=== PATIENT | female | born 1985 | race African-American/Black ===

== ENCOUNTER 2018-05-01 11:53 | Inpatient (IN) | payer OTHER ==
[~2018-05-01] VITALS: Ht 162.6 cm; Wt 49.0 kg
[2018-05-01] MEDS ORDERED: GABA-845 PO (12:14)
[2018-05-01] MEDS ORDERED: ZANA4CAP PO (12:14)
[2018-05-01 12:19] LABS: VENOUS BASE EXCESS -2.3 (-2.0-2.0); VENOUS HCO3 23.5 MEQ/L (23.0-27.0); VENOUS O2 SATURATION 91.7 % (60.0-80.0); VENOUS PARTIAL PRESSURE CO2 44.2 mmHg (38.0-50.0); VENOUS PARTIAL PRESSURE O2 65.8 mmHg (30.0-50.0); VENOUS PH 7.343 UNITS (7.330-7.430); VENOUS STANDARD HCO3 22.4 MEQ/L; VENOUS TOTAL CO2 24.8 MEQ/L (24.0-28.0)
[2018-05-01 12:24] LABS: BASO % 0.5 % (0.0-1.0); EOS % 0.5 % (0.0-3.0); HEMOGLOBIN 11.8 g/dl (12.0-15.5); LYMPH # 1.6 10^3/uL (1.5-4.5); LYMPH % 26.7 % (24.0-44.0); MEAN CORPUSCULAR HEMOGLOBIN 27.4 pg (27.0-33.0); MEAN CORPUSCULAR HGB CONC 32.8 g/dl (32.0-36.5); MEAN CORPUSCULAR VOLUME 83.5 fl (80.0-96.0); MONO # 0.3 10^3/uL (0.0-0.8); NEUTROPHILS # 3.9 10^3/uL (1.8-7.7); NEUTROPHILS % 67.1 % (36.0-66.0); PLATELET COUNT, AUTOMATED 117 10^3/uL (150-450); RED BLOOD COUNT 4.31 10^6/uL (4.00-5.40); WHITE BLOOD COUNT 5.8 10^3/uL (4.0-10.0)
[2018-05-01] MEDS ORDERED: NS 1,000 ML IV ONE (12:45)
[2018-05-01 12:53] LABS: ACETAMINOPHEN LEVEL < 2.0 UG/ML (10.0-30.0); ALBUMIN 3.5 GM/DL (3.2-5.2); ALT/SGPT 19 U/L (12-78); BILIRUBIN,DIRECT 0.3 MG/DL (0.0-0.2); BILIRUBIN,TOTAL 1.1 MG/DL (0.2-1.0); BLOOD UREA NITROGEN 9 MG/DL (7-18); CALCIUM LEVEL 8.3 MG/DL (8.5-10.1); CARBON DIOXIDE LEVEL 21 MEQ/L (21-32); CHLORIDE LEVEL 111 MEQ/L (98-107); CPK CREATINE PHOSPHOKINASE 126 U/L (26-192); CREATININE FOR GFR 0.72 MG/DL (0.55-1.30); ETHYL ALCOHOL (ETHANOL) < 0.003 % (0.000-0.010); GLOMERULAR FILTRATION RATE > 60.0 (>60); GLUCOSE, FASTING 92 MG/DL (70-100); POTASSIUM SERUM 4.1 MEQ/L (3.5-5.1); SALICYLATE LEVEL < 1.7 MG/DL (5.0-30.0); SODIUM LEVEL 140 MEQ/L (136-145); THYROID STIMULATING HORMONE 0.983 uIU/ML (0.358-3.740); TOTAL PROTEIN 6.8 GM/DL (6.4-8.2)
[2018-05-01 12:58] LABS: HCG, SERUM QUALITATIVE NEGATIVE (NEGATIVE)
--- NOTE | 2018-05-01 13:39 | ECGEPIP ---
Stationary ECG Study [facility] - ED Test Date: 2018-05-01 Pat Name: ALYSSA FALCON Department: Room: - Gender: F Senior Sql Server Developer: TC : 1985 Requested By: Lilly Navarro Order Number: [id number] Reading MD: Erick Ann Measurements Intervals [place] Rate: 69 P: 55 KS: 164 QRS: 83 QRSD: 70 T: 64 QT: 400 QTc: 431 Interpretive Statements SINUS RHYTHM NO PRIORS FOR COMPARISON Electronically Signed On 05-01-2018 13:39:07 EST by Erick Ann
[2018-05-01 13:54] LABS: AMPHETAMINES LEVEL URINE NEGATIVE (NEGATIVE); BARBITURATES URINE NEGATIVE (NEGATIVE); BENZODIAZEPINES URINE NEGATIVE (NEGATIVE); CANNABINOIDS URINE NEGATIVE (NEGATIVE); COCAINE METABOLITE URINE NEGATIVE (NEGATIVE); METHADONE URINE NEGATIVE (NEGATIVE); OPIATES URINE NEGATIVE (NEGATIVE); PHENCYCLIDINE URINE NEGATIVE (NEGATIVE)
[2018-05-01] MEDS ORDERED: MELO15TA28 PO (17:41)
[2018-05-01] MEDS ORDERED: MONI2KIT PV (17:41)
[2018-05-01] MEDS ORDERED: MOM 30ML SUSPENSION UDC PO PRN (19:45)
[2018-05-01] MEDS ORDERED: MAALOX 30 ML SUSP *UDC PO PRN (19:45)
[2018-05-02 00:06] VITALS: BP 104/64
[2018-05-02] MEDS: ACETAMINOPHEN TAB 650MG DOSE (2X325MG) PO PRN (00:50)
[2018-05-02 07:18] VITALS: BP 101/59
--- NOTE | 2018-05-02 09:58 | HPEPDOC ---
[facility] Medical History & Physical Date of Admission May 01, 2018 History and Physical PCP: [facility] ATTENDING: Dr. Roula Plascecnia HPI: 32yoF brought to the emergency department following ingestion of 6 gabapentin, 6 tizanidine, 6 meloxicam at 0900 on 05/01/18. The patient was treated with IV fluids, poison control was consulted, the patient was medically stabilized and admitted to [facility] for unspecified depressive disorder, being medically examined today. Denies any fevers, chills, weakness, fatigue, DIAZ, CP, SOB, cough, palpitations, abdominal pain, N/V/D or changes in bowel or bladder habits. PMHx: Anxiety Depression History of SI/SA Chronic back pain. The patient reports she follows with [facility] for chronic back pain. She was prescribed gabapentin and tizanidine as per orthopedics for pain. She was prescribed meloxicam as per PCP for back pain. OAB PSHX: 1 SOCHX: Resides in: [facility]. Patient states she is from [facility]. Marital Status: Kids: 2 Employment: Active duty Tobacco use: Denies ETOH: One to 2 drinks every 3 months Illicit Drugs: Denies IV Drug Use: Denies Tattoos done unprofessionally: Denies FAMHX: Mother: Alive, well Father: Alive, well Siblings: Alive, well Children: Alive, well Unexpected deaths due to medical reasons: None. ROS: As noted in HPI, otherwise 11pt ROS of systems reviewed and remarkable only for LMP 04/08/18. She reports taking Monistat 3 [id number] for the past 2 months for some mild itching and occasional whitish vaginal discharge. She reports no urinary complaints, dysuria, frequency, urgency, or hematuria. She denies vaginal discharge currently. She denies any vaginal lesions currently. PE: GEN: 32 yo F, appears stated age. Well-nourished, well developed. No acute distress. Alert and oriented x 3. Affect is flat, provides 1-2 word answers. HEENT: Normocephalic, atraumatic. Pupils are equal, round, and reactive to light. Extraocular movements are intact. No nystagmus appreciated. Sclera are nonicteric. Conjunctiva without injection. Nose midline. Nasal turbinates without bogginess. EACs both patent BL. TMs both visualized and galvan with good cone of light, no bulging or erythema. No facial asymmetry. Moist mucous membranes. Dentition fair. Pharynx pink and moist, no cobblestoning. Neck supple, trachea midline. No lymphadenopathy or thyromegaly appreciated. CHEST: Regular rate and rhythm, +S1, +S2 LUNGS: Clear to auscultation bilaterally. No wheezes, rales, or rhonchi. Br eathing appears symmetric and easy. Patient is speaking in full sentences. No accessory muscle use. ABD: Round, soft, non-tender, non-distended. +Bowel sounds throughout. No rebound or guarding. No costovertebral angle tenderness. EXT: Pulses 2+ bilaterally dorsalis pedis and radial. No lower extremity edema appreciated. SKIN: [place], dry, warm. Capillary refill <2sec. No rashes. NEURO: Alert and oriented x 3. Cranial nerves III-XII are intact. No focal deficits appreciated. EKG: SINUS RHYTHM NO PRIORS FOR COMPARISON Electronically Signed On 05-01-2018 13:39:07 EST by Erick Ann A&P: 32yoF brought to the emergency department following ingestion of 6 gabapentin, 6 tizanidine, 6 meloxicam at 0900 on 05/01/18. The patient was treated with IV fluids, poison control was consulted, the patie nt was medically stabilized and admitted to [facility] for unspecified depressive disorder 1. Psych. Plan per Psychiatry. EKG on file. 2. Chronic back pain. Continue Tylenol 650 mg every 6 hours as needed. Follows as outpatient with [facility]. Consider pain management consultation if needed. 3. Vaginitis. The pt reports that she was self treating for intermittent mild itching. She is currently reporting no vaginal discharge, bleeding, skin lesions. She is denying any urinary complaints or abdominal pain. Request UA with reflex culture. The patient states she had been using Monistat [id number] for the past 2 months. Monistat is on hold at this time. The patient is declining STI screening at this time. 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 4. OAB. Request UA with reflex culture. 5. Follow up with PCP on discharge. 6. Staff member eMsha K[facility] present throughout exam. Vital Signs Vital Signs Date Time Temp Pulse Resp B/P (MAP) Pulse Ox O2 Delivery O2 Flow Rate FiO2 05/02/18 09:25 Room Air 05/02/18 07:18 98.9 72 14 101/59 (73) 05/02/18 00:06 99 Laboratory Data Labs 24H Laboratory Tests 2 05/01/18 12:10: Immature Granulocyte % (Auto) 0.2, White Blood Count 5.8, Red Blood Count 4.31, Hemoglobin 11.8L, Hematocrit 36.0, Mean Corpuscular Volume 83.5, Mean Corpuscular Hemoglobin 27.4, Mean Corpuscular Hemoglobin Concent 32.8, Red Cell Distribution Width 14.5, Platelet Count 117L, Neutrophils (%) (Auto) 67.1H, Lymphocytes (%) (Auto) 26.7, Monocytes (%) (Auto) 5.0, Eosinophils (%) (Auto) 0.5, Basophils (%) (Auto) 0.5, Neutrophils # (Auto) 3.9, Lymphocytes # (Auto) 1.6, Monocytes # (Auto) 0.3, Eosinophils # (Auto) 0.0, Basophils # (Auto) 0.0, Nucleated Red Blood Cells % (auto) 0.0, Blood Gas Bicarbonate Standard 22.4, Venous Blood pH 7.343, Venous Blood Partial Pressure CO2 44.2, Venous Blood Partial Pressure O2 65.8H, Venous Blood Total Carbon Dioxide 24.8, Venous Blood HCO3 23.5, Venous Blood Oxygen Saturation 91.7H, Venous Blood Base Excess -2.3L, Anion Gap 8, Glomerular Filtration Rate > 60.0, Calcium Level 8.3L, Aspartate Amino Transf (AST/SGOT) 19, Alanine Aminotransferase (ALT/SGPT) 19, Alkaline Phosphatase 43L, Total Bilirubin 1.1H, Direct Bilirubin 0.3H, Total Creatine Kinase 126, Total Protein 6.8, Albumin 3.5, Albumin/Globulin Ratio 1.06, Thyroid Stimulating Hormone (TSH) 0.983, Human Chorionic Gonadotropin, Qual NEGATIVE, Salicylates Level < 1.7L, Urine Amphetamines Screen NEGATIVE, Urine Benzodiazepines Screen NEGATIVE, Urine Opiates Screen NEGATIVE, Urine Methadone Screen NEGATIVE, Acetaminophen Level < 2.0L, Urine Barbiturates Screen NEGATIVE, Urine Phencyclidine Screen NEGATIVE, Urine Cocaine Metabolite Screen NEGATIVE, Urine Cannabinoids Screen NEGATIVE, Ethyl Alcohol Level < 0.003 05/01/18 12:21: Bedside Glucose (Misc Panel) 62L 05/01/18 14:06: Bedside Glucose (Misc Panel) 70 CBC/BMP Laboratory Tests 05/01/18 12:10 Red Blood Count 4.31, Mean Corpuscular Volume 83.5, Mean Corpuscular Hemoglobin 27.4, Mean Corpuscular Hemoglobin Concent 32.8, Red Cell Distribution Width 14.5, Neutrophils (%) (Auto) 67.1 H, Lymphocytes (%) (Auto) 26.7, Monocytes (%) (Auto) 5.0, Eosinophils (%) (Auto) 0.5, Basophils (%) (Auto) 0.5, Neutrophils # (Auto) 3.9, Lymphocytes # (Auto) 1.6, Monocytes # (Auto) 0.3, Eosinophils # (Auto) 0.0, Basophils # (Auto) 0.0 Home Medications Scheduled (Monistat 3 Combination Pa) 1 Kit Kit, 1 KIT PV QPM Gabapentin (Gabapentin) 400 Mg Cap, 400 MG PO TID Meloxicam (Meloxicam) 15 Mg Tab, 15 MG PO DAILY Tizanidine Hydrochloride (Zanaflex) 4 Mg Cap, 4 MG PO TID Allergies Coded Allergies: No Known Allergies (Unverified , 05/01/18) Sugey Ramachandran May 02, 2018 09:58
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
[2018-05-02] MEDS: MELOXICAM (MOBIC) 7.5 MG TAB PO SCH (12:33)
[2018-05-02] MEDS: hydrOXYzine 25 MG TAB PO PRN (12:34)
[2018-05-02] MEDS: tiZANidine 4 MG TAB PO SCH ×2 (15:59→21:07)
[2018-05-02] MEDS: GABAPENTIN 400 MG CAP PO SCH ×2 (15:59→21:06)
--- NOTE | 2018-05-02 16:59 | REP ---
CT Head without contrast HISTORY: Psychosis COMPARISON: None There is no intraparenchymal hemorrhage, acute infarct, mass or midline shift. The ventricular system is normal in appearance. There is no extra cerebral collection. There is no fracture. The visualized sinuses are clear. IMPRESSION: There is no intracranial lesion. Electronically Signed by Giuseppe Mandujano MD 05/02/2018 04:50 P
[2018-05-02 18:00] VITALS: BP 95/61
[2018-05-02] MEDS: SERTRALINE HCL 50 MG TAB PO SCH (21:06)
[2018-05-02] MEDS: PALIPERIDONE 3 MG ER TAB (INVEGA) PO SCH (21:07)
[2018-05-03 06:12] VITALS: BP 102/59
[2018-05-03] MEDS ORDERED: tiZANidine 4 MG TAB PO SCH (09:00)
[2018-05-03] MEDS: GABAPENTIN 400 MG CAP PO SCH ×3 (09:10→21:02)
[2018-05-03] MEDS: tiZANidine 4 MG TAB PO SCH (09:10)
[2018-05-03] MEDS: MELOXICAM (MOBIC) 7.5 MG TAB PO SCH (09:10)
[2018-05-03] MEDS: hydrOXYzine 25 MG TAB PO PRN ×2 (09:10→16:55)
[2018-05-03 18:00] VITALS: BP 116/64
[2018-05-03] MEDS: PALIPERIDONE 3 MG ER TAB (INVEGA) PO SCH (21:02)
[2018-05-03] MEDS: SERTRALINE HCL 50 MG TAB PO SCH (21:02)
[2018-05-03] MEDS: PRAZOSIN 1 MG CAP PO SCH (21:03)
[2018-05-04 06:00] VITALS: BP 113/59
[2018-05-04] MEDS: MELOXICAM (MOBIC) 7.5 MG TAB PO SCH (08:25)
[2018-05-04] MEDS: tiZANidine 4 MG TAB PO SCH ×2 (08:25→21:05)
[2018-05-04] MEDS: GABAPENTIN 400 MG CAP PO SCH ×3 (08:25→21:05)
[2018-05-04] MEDS: hydrOXYzine 25 MG TAB PO PRN ×2 (08:26→16:54)
--- NOTE | 2018-05-04 17:29 | MHIPN ---
DATE: 05/04/2018 CHIEF COMPLAINT: Appears depressed. SUBJECTIVE: Seen for followup, in the presence of staff. She says feels depressed, anxious as well, sleep is fair. Appetite has been down generally, feels a bit tired. Says has a tendency to look at objects for 2-3 minutes, and always look for a bright side to them, literally, before she moves on to a different object, says has done that for a few years, and suggests feels anxious if she is not able to find a literal "bright side." Says when she is able to, feels less anxious, and then the process repeats itself. Says the tendencies above also tend to interfere with her work at times, or at times with her son. Denies any auditory hallucinations. Denies any visual hallucinations as such. Says was disappointed her mother did not visit her, or be with her, when the patient's son was born, this was when she was in [place]. MENTAL STATUS EXAMINATION: Neat, cooperative, though possibly a bit guarded, coherent, speaks softly, no agitation. Mood is depressed. Affect is restricted in range, congruent with mood, shows little in terms of reactivity. She denies any suicidal thoughts or intents. No homicidal ideas or intents. Does not appear internally preoccupied. No delusional ideations elicited. Cognition grossly intact. Judgment and insight are poor. ASSESSMENT: Posttraumatic stress disorder. Major depressive disorder, possibly recurrent, severe. Remains depressed, has trauma related symptoms. It is possible she has compulsions, when she looks at objects, rather than illusions, or visual hallucinations. Tends to feel less anxious when she is able to look at the "brighter side," only for the anxiety to return. PLAN: Continue Zoloft 50 mg daily, will look at titrating it upwards, to help address her mood, trauma related symptoms, as well as the compulsions. Unclear of the indications for paliperidone, at this dose.Given the lowest recommended dose for the paliperidone, will continue with 3 mg at night, but I would suggest re-looking at its use. I would encourage her to participate in activities in the unit. Her marriage remains a considerable source of difficulty for the patient, and will need to address that. Vital signs: Blood pressure 113/59, pulse 87, temperature 99. edited: 05/06/2018 [id number] fz MTDD
[2018-05-04 18:00] VITALS: BP 115/69
[2018-05-04] MEDS: SERTRALINE HCL 50 MG TAB PO SCH (21:05)
[2018-05-04] MEDS: PALIPERIDONE 3 MG ER TAB (INVEGA) PO SCH (21:05)
[2018-05-04] MEDS: PRAZOSIN 1 MG CAP PO SCH (21:05)
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
[2018-05-05 06:00] VITALS: BP 100/54
[2018-05-05] MEDS: MELOXICAM (MOBIC) 7.5 MG TAB PO SCH (08:40)
[2018-05-05] MEDS: tiZANidine 4 MG TAB PO SCH ×2 (08:40→20:18)
[2018-05-05] MEDS: GABAPENTIN 400 MG CAP PO SCH ×3 (08:40→20:18)
[2018-05-05] MEDS: hydrOXYzine 25 MG TAB PO PRN ×2 (08:41→14:29)
[2018-05-05] MEDS ORDERED: SERTRALINE HCL 25 MG TABLET PO ONE (13:00)
[2018-05-05 18:00] VITALS: BP 108/68
[2018-05-05] MEDS: PALIPERIDONE 3 MG ER TAB (INVEGA) PO SCH (20:18)
[2018-05-05] MEDS: PRAZOSIN 1 MG CAP PO SCH (20:18)
[2018-05-05] MEDS: traZODone 50 MG TAB PO PRN (20:26)
[2018-05-05] MEDS ORDERED: SERTRALINE HCL 25 MG TABLET PO SCH (21:00)
[2018-05-06 06:15] VITALS: BP 95/54
[2018-05-06] MEDS: tiZANidine 4 MG TAB PO SCH ×2 (08:31→20:16)
[2018-05-06] MEDS: MELOXICAM (MOBIC) 7.5 MG TAB PO SCH (08:31)
[2018-05-06] MEDS: GABAPENTIN 400 MG CAP PO SCH ×3 (08:31→20:15)
[2018-05-06] MEDS: hydrOXYzine 25 MG TAB PO PRN ×3 (08:32→20:16)
[2018-05-06] MEDS ORDERED: SERTRALINE HCL 25 MG TABLET PO SCH (09:00)
--- NOTE | 2018-05-06 10:44 | MHIPN ---
DATE: 05/05/2018 CHIEF COMPLAINT: Feels depressed. SUBJECTIVE: Seen for follow-up in the presence of staff, says feels depressed, anxious as well. Says saw her , she has informed him that she would want a divorce, and in fact, wants him out of the house when she leaves the hospital. Says they have spoken about divorce in the past as well, and she feels she cannot continue in the marriage. MENTAL STATUS EXAMINATION: Sitting up in bed. She is neat. She is cooperative, coherent. She speaks softly. Affect is restricted. Appears depressed, mildly anxious. Has suicidal thoughts. No firm plans. Currently no evidence of psychosis. Does not appear internally preoccupied. Cognition is grossly intact. Judgment and insight remain questionable. ASSESSMENT: Posttraumatic stress disorder (PTSD). Major depressive disorder, possibly recurrent, severe. PLAN: Will look at increasing the Zoloft to 75 mg daily to help with mood, trauma related symptoms, as well as the compulsions, which are mostly visual. We will continue encouraging her in participating in activities in the unit. She will be seeing the treatment team as well as the psychiatrist tomorrow, and further recommendations will be made. VITAL SIGNS: Blood pressure 100/54, temperature 99.3, pulse 75.
--- NOTE | 2018-05-06 13:54 | MHIPNPDOC ---
[facility] Progress Note Progress Note DATE OF SERVICE: 05/06/18 HISTORY: Chief Complaint "I overdosed". History of Present Illness HISTORY OF THE PRESENT ILLNESS: As per ED report: "Patient is a 32 -year-old , female, who, according to the ED report: "Patient is a [place] of [facility], residing here x 10 years. 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 She states that during the 3 months in which she was from them, she experienced severe depression & SI. She describes having a very difficult marriage now, noting that she is very unhappy with her home life. She suggested that this unhappiness at home has carried over to everyday life, whether at home or not. She states that she left for work this morning & sat in the parking lot, where she took the overdose before contacting her NCO. She continues to report feeling very depressed & is non-commital regarding her current intentions (when asked about continued SI)." VITAL SIGNS: See below. NEW TEST RESULTS: See below CURRENT MEDICATIONS: See below. MENTAL STATUS EXAMINATION: General Appearance: well groomed, appears stated age, hospital scubs/clothing Build: average Demeanor: cooperative, calm, withdrawn Eye Contact: average Activity: average Behavior: cooperative, anhedonia, withdrawn Speech: clear, spontaneous, slow, low in volume Mood: anxious, sad, angry Affect: constricted, flat, other (depressed) Thought Process: logical/linear Thought Content (Delusions): paranoia Thought Content (Other): none reported, ideas of reference Thought Content (Aggressive): none reported Perception (Hallucinations): visual (She sees spots on the ceiling) Cognition (Impairment of): attention/concentration (she becomes easily distracted when she sees spots on the ceiling) Oriented: Awake, Alert, Oriented times three Insight: poor Judgment: Poor Psychosis: Denies Diagnoses 1. Major Depressive disorder with psychosis 2. PTSD ASSESSMENT: Patient says she feels sad, angry and anxious, her affect is constricted. She continues to report visual hallucinations consisting on dots on the ceiling. I recommend her to see an eye doctor to r/o something going on with her vision and she tells me she went to an orchestra teacher a month ago because her son scratched her on her eye, she didn't tell the doctor about the dots because she didn't think it could be a vision problem. She says she gets the feeling that her is willing to work on their differences, she says they always reconcile after they talk about getting a divorce. She agrees to half-way therapy when I ask her. I will ask uniformer to talk to FD and see if they agree to this. MANAGEMENT PLAN: Increase Zoloft to 100 mgs PO QHS TIME SPENT: 25 minutes. Vital Signs Vital Signs Date Time Temp Pulse Resp B/P (MAP) Pulse Ox O2 Delivery O2 Flow Rate FiO2 05/06/18 06:15 98.7 70 14 95/54 (68) Room Air 05/02/18 00:06 99 Current Medications Current Medications Acetaminophen (Tylenol Tab) 650 mg Q6HP PRN PO HEADACHE or DISCOMFORT Last administered on 05/02/18at 00:50; Start 05/01/18 at 19:45 Al Hydrox/Mg Hydrox/Simethicone (Mylanta) 30 ml Q4HP PRN PO HEARTBURN/INDIGESTION; Start 05/01/18 at 19:45 Gabapentin (Neurontin) 400 mg TID PO Last administered on 05/06/18at 08:31; Start 05/02/18 at 16:00 Home Med (Med Rec Complete!) ASDIRECTED XX ; Start 05/01/18 at 17:45; Stop 05/01/18 at 17:45; Status DC Hydroxyzine HCl (Atarax) 25 mg Q6HP PRN PO ANXIETY/AGITATION Last administered on 05/06/18at 08:32; Start 05/01/18 at 19:45 Magnesium Hydroxide (Milk Of Magnesia) 30 ml DAILYPRN PRN PO CONSTIPATION; Start 05/01/18 at 19:45 Meloxicam (Mobic) 15 mg DAILY PO Last administered on 05/06/18at 08:31; Start 05/02/18 at 09:00 Paliperidone (Invega) 3 mg QHS PO Last administered on 05/05/18at 20:18; Start 05/02/18 at 21:00 Patient Own Medication (Patient'S Own Med) MYRBETRIQ ER 25MG ADMINIS... DAILY PO Last administered on 05/06/18 08:31; Start 05/04/18 at 09:00 Prazosin HCl (Minipress) 2 mg QHS PO Last administered on 05/05/18at 20:18; Start 05/03/18 at 21:00 Sertraline HCl (Zoloft) 50 mg QHS PO Last administered on 05/04/18at 21:05; Start 05/02/18 at 21:00; Stop 05/05/18 at 12:05; Status DC Sertraline HCl (Zoloft) 75 mg DAILY PO ; Start 05/06/18 at 09:00; Stop 05/06/18 at 09:00; Status DC Sertraline HCl (Zoloft) 75 mg QHS PO Last administered on 05/05/18at 20:18; Start 05/05/18 at 21:00 Tizanidine HCl (Zanaflex) 4 mg BID PO Last administered on 05/06/18at 08:31; Start 05/04/18 at 09:00 Tizanidine HCl (Zanaflex) 4 mg DAILY PO ; Start 05/03/18 at 09:00; Stop 05/03/18 at 09:00; Status DC Tizanidine HCl (Zanaflex) 4 mg TID PO Last administered on 05/03/18at 09:10; Start 05/02/18 at 16:00; Stop 05/03/18 at 14:22; Status DC Trazodone HCl (Desyrel) 50 mg QHSP PRN PO INSOMNIA Last administered on 05/05/18at 20:26; Start 05/01/18 at 19:45 Allergies Coded Allergies: No Known Allergies (Unverified , 05/01/18) BRIDGET COLEMAN MD May 06, 2018 13:54
[2018-05-06] MEDS: SODIUM CHLORIDE 0.9% NASAL GEL 15GM (AYR) SCH ×2 (14:44→20:17)
[2018-05-06 18:00] VITALS: BP 100/59
[2018-05-06] MEDS: PRAZOSIN 1 MG CAP PO SCH (20:16)
[2018-05-06] MEDS: SERTRALINE 100 MG TAB PO SCH (20:16)
[2018-05-06] MEDS: PALIPERIDONE 3 MG ER TAB (INVEGA) PO SCH (20:16)
[2018-05-07 06:40] VITALS: BP 99/56
[2018-05-07] MEDS: tiZANidine 4 MG TAB PO SCH ×2 (08:30→20:43)
[2018-05-07] MEDS: GABAPENTIN 400 MG CAP PO SCH ×3 (08:30→20:43)
[2018-05-07] MEDS: SODIUM CHLORIDE 0.9% NASAL GEL 15GM (AYR) SCH ×2 (08:30→20:42)
[2018-05-07] MEDS: MELOXICAM (MOBIC) 7.5 MG TAB PO SCH (08:30)
[2018-05-07] MEDS: hydrOXYzine 25 MG TAB PO PRN ×3 (08:31→21:27)
[2018-05-07 11:00] LABS: HEMOGLOBIN 11.5 g/dl (12.0-15.5); MEAN CORPUSCULAR HEMOGLOBIN 27.1 pg (27.0-33.0); MEAN CORPUSCULAR HGB CONC 32.9 g/dl (32.0-36.5); MEAN CORPUSCULAR VOLUME 82.5 fl (80.0-96.0); PLATELET COUNT, AUTOMATED 112 10^3/uL (150-450); RED BLOOD COUNT 4.24 10^6/uL (4.00-5.40); WHITE BLOOD COUNT 4.8 10^3/uL (4.0-10.0)
--- NOTE | 2018-05-07 11:31 | IPNPDOC ---
Date Seen The patient was seen on 05/07/18. Progress Note PCP: [facility] ATTENDING: Dr. Roula Plascencia HPI: 32yoF brought to the emergency department following ingestion of 6 gabapentin, 6 tizanidine, 6 meloxicam at 0900 on 05/01/18. The patient was treated with IV fluids, poison control was consulted, the patient was medically stabilized and admitted to [facility] for unspecified depressive disorder, being medically examined today. Denies any bleeding or bruising. Denies any fevers, chills, weakness, fatigue, DIAZ, CP, SOB, cough, palpitations, abdominal pain, N/V/D or changes in bowel or bladder habits. PMHx: Anxiety Depression History of SI/SA Chronic back pain. The patient reports she follows with [facility] for chronic back pain. She was prescribed gabapentin and tizanidine as per orthopedics for pain. She was prescribed meloxicam as per PCP for back pain. OAB PSHX: 1 PE: GEN: 32 yo F, appears stated age. No acute distress. HEENT: Normocephalic, atraumatic. Moist mucous membranes. EXT: No lower extremity edema. SKIN: [place], dry, warm. No rashes. NEURO: No focal deficits appreciated. EKG: SINUS RHYTHM NO PRIORS FOR COMPARISON Electronically Signed On 05-01-2018 13:39:07 EST by Erick ALVARADO 05/02/18 unremarkable. A&P: 32yoF brought to the emergency department following ingestion of 6 gabapentin, 6 tizanidine, 6 meloxicam at 0900 on 05/01/18. The patient was treated with IV fluids, poison control was consulted, the patient was medically stabilized and admitted to [facility] for unspecified depressive disorder 1. Psych. Plan per Psychiatry. EKG on file. 2. Chronic back pain. Continue Tylenol 650 mg every 6 hours as needed. Follows as outpatient with [facility]. Consider pain management consultation if needed. 3. Normocytic anemia with low Plt. Hgb 11.3. Plt 112. Will check Fe studies, B12, folate. Peripheral smear pending. Will HOLD Meloxicam, NSAID may contribute to low Plt. Update CBC in AM. 4. OAB. 5. Follow up with PCP on discharge. 6. Staff member present throughout exam. VS, I&O, 24H, Fishbone Vital Signs/I&O Vital Signs Date Time Temp Pulse Resp B/P (MAP) Pulse Ox O2 Delivery O2 Flow Rate FiO2 05/07/18 06:40 98.2 63 12 99/56 (70) 05/06/18 06:15 Room Air 05/02/18 00:06 99 Laboratory Data 24H LABS Laboratory Tests 2 05/07/18 10:25: Nucleated Red Blood Cells % (auto) 0.0 CBC/BMP Laboratory Tests 05/07/18 10:25 Red Blood Count 4.24, Mean Corpuscular Volume 82.5, Mean Corpuscular Hemoglobin 27.1, Mean Corpuscular Hemoglobin Concent 32.9, Red Cell Distribution Width 14.6 H Sugey Ramachandran May 07, 2018 11:31
[2018-05-07 18:00] VITALS: BP 106/68
[2018-05-07] MEDS: SERTRALINE 100 MG TAB PO SCH (20:43)
[2018-05-07] MEDS: PALIPERIDONE 3 MG ER TAB (INVEGA) PO SCH (20:43)
[2018-05-07] MEDS: PRAZOSIN 1 MG CAP PO SCH (20:44)
[2018-05-08 06:32] VITALS: BP 102/58
[2018-05-08 07:06] LABS: HEMATOCRIT 41.6 % (36.0-47.0); HEMOGLOBIN 13.4 g/dl (12.0-15.5); MEAN CORPUSCULAR HEMOGLOBIN 27.2 pg (27.0-33.0); MEAN CORPUSCULAR HGB CONC 32.2 g/dl (32.0-36.5); MEAN CORPUSCULAR VOLUME 84.6 fl (80.0-96.0); PLATELET COUNT, AUTOMATED 111 10^3/uL (150-450); RED BLOOD COUNT 4.92 10^6/uL (4.00-5.40); WHITE BLOOD COUNT 4.1 10^3/uL (4.0-10.0)
[2018-05-08] MEDS: tiZANidine 4 MG TAB PO SCH ×2 (08:24→20:37)
[2018-05-08] MEDS: GABAPENTIN 400 MG CAP PO SCH ×3 (08:24→20:36)
[2018-05-08] MEDS: SODIUM CHLORIDE 0.9% NASAL GEL 15GM (AYR) SCH ×2 (08:24→20:37)
[2018-05-08] MEDS: hydrOXYzine 25 MG TAB PO PRN (08:25)
[2018-05-08 08:31] LABS: ALBUMIN 3.5 GM/DL (3.2-5.2); ALT/SGPT 17 U/L (12-78); BILIRUBIN,TOTAL 0.9 MG/DL (0.2-1.0); BLOOD UREA NITROGEN 15 MG/DL (7-18); CALCIUM LEVEL 8.3 MG/DL (8.5-10.1); CARBON DIOXIDE LEVEL 25 MEQ/L (21-32); CHLORIDE LEVEL 108 MEQ/L (98-107); FERRITIN 9 NG/ML (8-252); GLOMERULAR FILTRATION RATE > 60.0 (>60); GLUCOSE, FASTING 82 MG/DL (70-100); IRON (FE) 108 UG/DL (50-170); PERCENT SATURATION 33.2 % (13.2-45.0); POTASSIUM SERUM 4.2 MEQ/L (3.5-5.1); SODIUM LEVEL 144 MEQ/L (136-145); TOTAL IRON BINDING CAPACITY 325 UG/DL (250-450); TOTAL PROTEIN 7.2 GM/DL (6.4-8.2)
[2018-05-08 09:55] LABS: VITAMIN B12 LEVEL 646 PG/ML (247-911)
[2018-05-08 10:05] LABS: HEPATITIS B SURFACE ANTIGEN NEGATIVE (NEGATIVE)
[2018-05-08 10:32] LABS: HEPATITIS C VIRUS ABY INDEX 0.1 INDEX (<0.8)
[2018-05-08 10:34] LABS: HEPATITIS B CORE ANTIBODY IGM NEGATIVE (NEGATIVE)
[2018-05-08 10:35] LABS: HEPATITIS A ANTIBODY IGM NEGATIVE (NEGATIVE)
[2018-05-08 11:34] LABS: HIV 1&2 SCREEN CENTAUR NEGATIVE (NEGATIVE)
--- NOTE | 2018-05-08 11:49 | IPNPDOC ---
Date Seen The patient was seen on 05/08/18. Progress Note PCP: [facility] ATTENDING: Dr. Roula Plascencia HPI: 32yoF brought to the emergency department following ingestion of 6 gabapentin, 6 tizanidine, 6 meloxicam at 0900 on 05/01/18. The patient was treated with IV fluids, poison control was consulted, the patient was medically stabilized and admitted to [facility] for unspecified depressive disorder, being medically examined today. Denies any bleeding or bruising. Denies any fevers, chills, weakness, fatigue, DIAZ, CP, SOB, cough, palpitations, abdominal pain, N/V/D or changes in bowel or bladder habits. PMHx: Anxiety Depression History of SI/SA Chronic back pain. The patient reports she follows with [facility] for chronic back pain. She was prescribed gabapentin and tizanidine as per orthopedics for pain. She was prescribed meloxicam as per PCP for back pain. OAB PSHX: 1 PE: GEN: 32 yo F, appears stated age. No acute distress. HEENT: Normocephalic, atraumatic. Moist mucous membranes. EXT: No lower extremity edema. SKIN: [place], dry, warm. No rashes. NEURO: No focal deficits appreciated. EKG: SINUS RHYTHM NO PRIORS FOR COMPARISON Electronically Signed On 05-01-2018 13:39:07 EST by Erick ALVARADO 05/02/18 unremarkable. Peripheral smear 05/07/18 Mild normocytic anemia with mild thrombocytopenia, possibly reactive. No abnormal immature leukocytes identified. Final: Electronically Signed by: YANN LESLIE MD 05/07/18 1330 A&P: 32yoF brought to the emergency department following ingestion of 6 gabapentin, 6 tizanidine, 6 meloxicam at 0900 on 05/01/18. The patient was treated with IV fluids, poison control was consulted, the patient was medically stabilized and admitted to [facility] for unspecified depressive disorder 1. Psych. Plan per Psychiatry. EKG on file. 2. Chronic back pain. Continue Tylenol 650 mg every 6 hours as needed. Follows as outpatient with [facility]. Consider pain management consultation if needed. 3. Normocytic anemia with low Plt. Hgb 13.4 today. Plt 111, stable. Fe studies within normal limits, B12, folate pending. Peripheral smear indicating Mild normocytic anemia with mild thrombocytopenia, possibly reactive. Continue to HOLD Meloxicam, NSAID may contribute to low Plt. Monitor CBC. 4. OAB. 5. Follow up with PCP on discharge. 6. Staff member present throughout exam. VS, I&O, 24H, Fishbone Vital Signs/I&O Vital Signs Date Time Temp Pulse Resp B/P (MAP) Pulse Ox O2 Delivery O2 Flow Rate FiO2 05/08/18 06:32 98.4 92 14 102/58 (73) 05/06/18 06:15 Room Air 05/02/18 00:06 99 Laboratory Data 24H LABS Laboratory Tests 2 05/08/18 06:42: Nucleated Red Blood Cells % (auto) 0.0, Anion Gap 11, Glomerular Filtration Rate > 60.0, Blood Urea Nitrogen 15, Creatinine 1.00, Sodium Level 144, Potassium Level 4.2, Chloride Level 108H, Carbon Dioxide Level 25, Calcium Level 8.3L, Aspartate Amino Transf (AST/SGOT) 20, Alanine Aminotransferase (ALT/SGPT) 17, Alkaline Phosphatase 52, Total Bilirubin 0.9, Total Protein 7.2, Albumin 3.5, Ir on Level 108, Total Iron Binding Capacity 325, Transferrin % Saturation 33.2, Ferritin 9, Albumin/Globulin Ratio 0.95L, Vitamin B12 Level 646, Hepatitis A IgM Antibody NEGATIVE, Hepatitis B Surface Antigen NEGATIVE, Hepatitis B Core IgM Antibody NEGATIVE, Hepatitis C Antibody Index 0.1, HIV Antigen/Antibody Combo Qual NEGATIVE CBC/BMP Laboratory Tests 05/08/18 06:42 Red Blood Count 4.92, Mean Corpuscular Volume 84.6, Mean Corpuscular Hemoglobin 27.2, Mean Corpuscular Hemoglobin Concent 32.2, Red Cell Distribution Width 14.6 H, Calcium Level 8.3 L, Aspartate Amino Transf (AST/SGOT) 20, Alanine Aminotransferase (ALT/SGPT) 17, Alkaline Phosphatase 52, Total Bilirubin 0.9, Total Protein 7.2, Albumin 3.5 Sugey Ramachandran May 08, 2018 11:49
--- NOTE | 2018-05-08 17:11 | MHIPNPDOC ---
[facility] [place] Note DATE OF SERVICE: 05/08/18 HISTORY: Chief Complaint "I overdosed". History of Present Illness HISTORY OF THE PRESENT ILLNESS: As per ED report: "Patient is a 32 -year-old , female, who, according to the ED report: "Patient is a zuni of [facility], residing here x 10 years. 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 She states that during the 3 months in which she was from them, she experienced severe depression & SI. She describes hav ing a very difficult marriage now, noting that she is very unhappy with her home life. She suggested that this unhappiness at home has carried over to everyday life, whether at home or not. She states that she left for work this morning & sat in the parking lot, where she took the overdose before contacting her NCO. She continues to report feeling very depressed & is non-commital regarding her current intentions (when asked about continued SI)." VITAL SIGNS: See below. NEW TEST RESULTS: See below CURRENT MEDICATIONS: See below. MENTAL STATUS EXAMINATION: General Appearance: well groomed, appears stated age, hospital scubs/clothing Build: average Demeanor: cooperative, calm, sad Eye Contact: average Activity: average Behavior: cooperative, anhedonia, withdrawn. she's sad, has psychomotor retardation Speech: clear, spontaneous, slow, low in volume Mood: anxious, sad, angry Affect: constricted, flat, other (depressed) Thought Process: logical/linear Thought Content (Delusions): paranoia Thought Content (Other): none reported, ideas of reference Thought Content (Aggressive): none reported Perception (Hallucinations): visual (She sees spots on the ceiling) Cognition (Impairment of): attention/concentration (she becomes easily distracted when she sees spots on the ceiling) Oriented: Awake, Alert, Oriented times three Insight: poor Judgment: Poor Psychosis: Denies Diagnoses 1. Major Depressive disorder with psychosis 2. PTSD ASSESSMENT: Patient sis more optimistic today, she says she is hopeful she will be send to prison treatment. I spoke with her about the spots on the ceiling she says, she says she really thinks they are hallucinations and I tell her once again, that she should go to an eye Doctor when she leaves COUNT INCLUDES THE [facility] MANAGEMENT PLAN: Continue with the same tx. plan TIME SPENT: 25 minutes. Vital Signs Vital Signs Date Time Temp Pulse Resp B/P (MAP) Pulse Ox O2 Delivery O2 Flow Rate FiO2 05/08/18 06:32 98.4 92 14 102/58 (73) 05/06/18 06:15 Room Air 05/02/18 00:06 99 Laboratory Data 24H Labs Laboratory Tests 2 05/08/18 06:42: Nucleated Red Blood Cells % (auto) 0.0, Anion Gap 11, Glomerular Filtration Rate > 60.0, Blood Urea Nitrogen 15, Creatinine 1.00, Sodium Level 144, Potassium Level 4.2, Chloride Level 108H, Carbon Dioxide Level 25, Calcium Level 8.3L, Aspartate Amino Transf (AST/SGOT) 20, Alanine Aminotransferase (ALT/SGPT) 17, Alkaline Phosphatase 52, Total Bilirubin 0.9, Total Protein 7.2, Albumin 3.5, Iron Level 108, Total Iron Binding Capacity 325, Transferrin % Saturation 33.2, Ferritin 9, Albumin/Globulin Ratio 0.95L, Vitamin B12 Level 646, Hepatitis A IgM Antibody NEGATIVE, Hepatitis B Surface Antigen NEGATIVE, Hepatitis B Core IgM Antibody NEGATIVE, Hepatitis C Antibody Index 0.1, HIV Antigen/Antibody Combo Qual NEGATIVE CBC/BMP Laboratory Tests 05/08/18 06:42 Red Blood Count 4.92, Mean Corpuscular Volume 84.6, Mean Corpuscular Hemoglobin 27.2, Mean Corpuscular Hemoglobin Concent 32.2, Red Cell Distribution Width 14.6 H, Calcium Level 8.3 L, Aspartate Amino Transf (AST/SGOT) 20, Alanine Aminotransferase (ALT/SGPT) 17, Alkaline Phosphatase 52, Total Bilirubin 0.9, Total Protein 7.2, Albumin 3.5 Current Medications Current Medications Acetaminophen (Tylenol Tab) 650 mg Q6HP PRN PO HEADACHE or DISCOMFORT Last administered on 05/02/18at 00:50; Start 05/01/18 at 19:45 Al Hydrox/Mg Hydrox/Simethicone (Mylanta) 30 ml Q4HP PRN PO HEARTBURN/INDIGESTION; Start 05/01/18 at 19:45 Gabapentin (Neurontin) 400 mg TID PO Last administered on 05/08/18at 15:58; Start 05/02/18 at 16:00 Home Med (Med Rec Complete!) ASDIRECTED XX ; Start 05/01/18 at 17:45; Stop 05/01/18 at 17:45; Status DC Hydroxyzine HCl (Atarax) 25 mg Q6HP PRN PO ANXIETY/AGITATION Last administered on 05/08/18at 08:25; Start 05/01/18 at 19:45 Magnesium Hydroxide (Milk Of Magnesia) 30 ml DAILYPRN PRN PO CONSTIPATION; Sta rt 05/01/18 at 19:45 Meloxicam (Mobic) 15 mg DAILY PO Last administered on 05/07/18at 08:30; Start 05/02/18 at 09:00; Stop 05/07/18 at 13:50; Status DC Paliperidone (Invega) 3 mg QHS PO Last administered on 05/07/18at 20:43; Start 05/02/18 at 21:00 Patient Own Medication (Patient'S Own Med) MYRBETRIQ ER 25MG ADMINIS... DAILY PO Last administered on 05/08/18at 08:24; Start 05/04/18 at 09:00 Prazosin HCl (Minipress) 2 mg QHS PO Last administered on 05/07/18at 20:44; Start 05/03/18 at 21:00 Sertraline HCl (Zoloft) 50 mg QHS PO Last administered on 05/04/18at 21:05; Start 05/02/18 at 21:00; Stop 05/05/18 at 12:05; Status DC Sertraline HCl (Zoloft) 75 mg DAILY PO ; Start 05/06/18 at 09:00; Stop 05/06/18 at 09:00; Status DC Sertraline HCl (Zoloft) 75 mg QHS PO Last administered on 05/05/18at 20:18; Start 05/05/18 at 21:00; Stop 05/06/18 at 13:54; Status DC Sertraline HCl (Zoloft) 100 mg QHS PO Last administered on 05/07/18at 20:43; Start 05/06/18 at 21:00 Sodium Chloride ([place] Saline Nasal Gel) 1 dose BID NA Last administered on 05/08/18at 08:24; Start 05/06/18 at 14:00 Tizanidine HCl (Zanaflex) 4 mg BID PO Last administered on 05/08/18at 08:24; Start 05/04/18 at 09:00 Tizanidine HCl (Zanaflex) 4 mg DAILY PO ; Start 05/03/18 at 09:00; Stop 05/03/18 at 09:00; Status DC Tizanidine HCl (Zanaflex) 4 mg TID PO Last administered on 05/03/18at 09:10; Start 05/02/18 at 16:00; Stop 05/03/18 at 14:22; Status DC Trazodone HCl (Desyrel) 50 mg QHSP PRN PO INSOMNIA Last administered on at 20:26; Start 05/01/18 at 19:45 Allergies Coded Allergies: No Known Allergies (Unverified , 05/01/18) BRIDGET COLEMAN MD May 08, 2018 17:11
[2018-05-08 17:49] LABS: FOLATE 14.3 NG/ML (>5.4)
[2018-05-08 18:00] VITALS: BP 104/51
[2018-05-08] MEDS: SERTRALINE 100 MG TAB PO SCH (20:37)
[2018-05-08] MEDS: PRAZOSIN 1 MG CAP PO SCH (20:37)
[2018-05-08] MEDS: PALIPERIDONE 3 MG ER TAB (INVEGA) PO SCH (20:37)
[2018-05-09 06:21] VITALS: BP 92/55
[2018-05-09 07:23] LABS: HEMATOCRIT 38.5 % (36.0-47.0); HEMOGLOBIN 12.7 g/dl (12.0-15.5); MEAN CORPUSCULAR HEMOGLOBIN 27.2 pg (27.0-33.0); MEAN CORPUSCULAR VOLUME 82.4 fl (80.0-96.0); PLATELET COUNT, AUTOMATED 100 10^3/uL (150-450); RED BLOOD COUNT 4.67 10^6/uL (4.00-5.40); WHITE BLOOD COUNT 4.3 10^3/uL (4.0-10.0)
[2018-05-09] MEDS: tiZANidine 4 MG TAB PO SCH ×2 (08:45→21:03)
[2018-05-09] MEDS: hydrOXYzine 25 MG TAB PO PRN ×2 (08:45→15:37)
[2018-05-09] MEDS: GABAPENTIN 400 MG CAP PO SCH ×3 (08:45→21:02)
[2018-05-09] MEDS: SODIUM CHLORIDE 0.9% NASAL GEL 15GM (AYR) SCH ×2 (08:46→21:03)
[2018-05-09 09:23] LABS: INR 0.99; PROTHROMBIN TIME 13.2 SECONDS (12.1-14.4)
[2018-05-09 09:24] LABS: PARTIAL THROMBOPLASTIN TIME 35.5 SECONDS (25.4-37.6)
[2018-05-09] MEDS ORDERED: PILL CRUSHER/CUTTER 1 EACH XX PRN (12:00)
--- NOTE | 2018-05-09 13:12 | IPNPDOC ---
Date Seen The patient was seen on 05/09/18. Progress Note PCP: [facility] ATTENDING: Dr. Roula Plascencia HPI: 32yoF brought to the emergency department following ingestion of 6 gabapentin, 6 tizanidine, 6 meloxicam at 0900 on 05/01/18. The patient was treated with IV fluids, poison control was consulted, the patient was medically stabilized and admitted to [facility] for unspecified depressive disorder, being medically examined today. Patient denies any fevers, night sweats, recent weight loss. Denies any bleeding or bruising. Denies any recent illnesses or respiratory illnesses. The patient states she has been found to have low platelets in the past however she denies any prior evaluation or workup. Denies any chills, weakness, fatigue, DIAZ, CP, SOB, cough, palpitations, abdominal pain, N/V/D or changes in bowel or bladder habits. PMHx: Anxiety Depression History of SI/SA Chronic back pain. The patient reports she follows with [facility] for chronic back pain. She was prescribed gabapentin and tizanidine as per orthopedics for pain. She was prescribed meloxicam as per PCP for back pain. OAB PSHX: 1 PE: GEN: 32 yo F, appears stated age. No acute distress. HEENT: Normocephalic, atraumatic. Moist mucous membranes. EXT: No lower extremity edema. SKIN: [place], dry, warm. No rashes. NEURO: No focal deficits appreciated. EKG: SINUS RHYTHM NO PRIORS FOR COMPARISON Electronically Signed On 05-01-2018 13:39:07 EST by Erick ALVARADO 05/02/18 unremarkable. Peripheral smear 05/07/18 Mild normocytic anemia with mild thrombocytopenia, possibly reactive. No abnormal immature leukocytes identified. Final: Electronically Signed by: YANN LESLIE MD 05/07/18 1330 A&P: 32yoF brought to the emergency department following ingestion of 6 gabapentin, 6 tizanidine, 6 meloxicam at 0900 on 05/01/18. The patient was treated with IV fluids, poison control was consulted, the patient was medically stabilized and admitted to [facility] for unspecified depressive disorder 1. Psych. Plan per Psychiatry. EKG on file. 2. Chronic back pain. Continue Tylenol 650 mg every 6 hours as needed. Follows as outpatient with [facility]. Consider pain management consultation if needed. 3. Normocytic anemia with low Plt. Hgb 12.7 today. Plt 100, decreased slightly. Fe studies within normal limits, B12, folate within normal limits. PT/PTT unremarkable. Fibrinogen within normal limits Peripheral smear indicating Mild normocytic anemia with mild thrombocytopenia, possibly reactive. Reviewed with Dr Lay, Continue to HOLD Meloxicam, NSAID may contribute to low Plt. Monitor CBC. Continue to monitor. 4. OAB. 5. Follow up with PCP on discharge. 6. Staff member present throughout exam. VS, I&O, 24H, Fishbone Vital Signs/I&O Vital Signs Date Time Temp Pulse Resp B/P (MAP) Pulse Ox O2 Delivery O2 Flow Rate FiO2 05/09/18 06:21 99.5 66 12 92/55 (67) 05/06/18 06:15 Room Air Laboratory Data 24H LABS Laboratory Tests 2 05/09/18 07:07: Nucleated Red Blood Cells % (auto) 0.0 05/09/18 08:34: Prothrombin Time 13.2, Prothromb Time International Ratio 0.99, Activated Partial Thromboplast Time 35.5, Fibrinogen 288 CBC/BMP Laboratory Tests 05/09/18 07:07 Red Blood Count 4.67, Mean Corpuscular Volume 82.4, Mean Corpuscular Hemoglobin 27.2, Mean Corpuscular Hemoglobin Concent 33.0, Red Cell Distribution Width 14.5 Sugey Ramachandran May 09, 2018 09:46
--- NOTE | 2018-05-09 14:37 | MHIPNPDOC ---
[facility] Progress Note Progress Note DATE OF SERVICE: 05/09/18 HISTORY: Chief Complaint "I overdosed". History of Present Illness HISTORY OF THE PRESENT ILLNESS: As per ED report: "Patient is a 32 -year-old , female, who, according to the ED report: "Patient is a [place] of [facility], residing here x 10 years. 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 She states that during the 3 months in which she was from them, she experienced severe depression & SI. She describes hav ing a very difficult marriage now, noting that she is very unhappy with her home life. She suggested that this unhappiness at home has carried over to everyday life, whether at home or not. She states that she left for work this morning & sat in the parking lot, where she took the overdose before contacting her NCO. She continues to report feeling very depressed & is non-commital regarding her current intentions (when asked about continued SI)." VITAL SIGNS: See below. NEW TEST RESULTS: See below CURRENT MEDICATIONS: See below. MENTAL STATUS EXAMINATION: General Appearance: well groomed, appears stated age, hospital scrubs/clothing Build: average Demeanor: cooperative, calm, sad Eye Contact: average Activity: average, psychomotor retardation Behavior: cooperative, withdrawn. She's sad, has psychomotor retardation. she was in bed when we went to evaluate her. It was 1 pm, she looks very tired Speech: clear, spontaneous, slow, low in volume, normal tone Mood: anxious, sad, angry Affect: constricted, flat, other (depressed) Thought Process: logical/linear Thought Content (Delusions): not assessed today Thought Content (Other): none reported, ideas of reference, she continues to endorse depressed/anxious thoughts, she doesn't deny, nor admit to have SI, but she says that she would think about doing it, because she thinks that thinking about her children would be able to stop her. Thought Content (Aggressive): none reported Perception (Hallucinations): not assessed today Cognition (Impairment of): attention/concentration, she forgets that she has mentioned something and she talks about it again and again Oriented: Awake, Alert, Oriented times three Insight: fair Judgment: Poor Psychosis: she has been reporting that she sees dots in the ceiling but she was not responding to internal stimuli, besides the dots, could be secondary to a visual problem Diagnoses 1. Major Depressive disorder with psychosis 2. PTSD ASSESSMENT: Patient talked in detail about her arguments, problems and disagreements with , said she becomes anxious when he starts breaking things around the house, she gets disappointed and she says if he continues to do those things, she will leave him and she will take take her children. Her m edication has been increased to Zoloft 150 mgs and was started on Abilify 2.5 mgs. MANAGEMENT PLAN: See above TIME SPENT: 35 minutes. Vital Signs Vital Signs Date Time Temp Pulse Resp B/P (MAP) Pulse Ox O2 Delivery O2 Flow Rate FiO2 05/09/18 06:21 99.5 66 12 92/55 (67) 05/06/18 06:15 Room Air Laboratory Data 24H Labs Laboratory Tests 2 05/09/18 07:07: Nucleated Red Blood Cells % (auto) 0.0 05/09/18 08:34: Prothrombin Time 13.2, Prothromb Time International Ratio 0.99, Activated Partial Thromboplast Time 35.5, Fibrinogen 288 CBC/BMP Laboratory Tests 05/09/18 07:07 Red Blood Count 4.67, Mean Corpuscular Volume 82.4, Mean Corpuscular Hemoglobin 27.2, Mean Corpuscular Hemoglobin Concent 33.0, Red Cell Distribution Width 14.5 Current Medications Current Medications Acetaminophen (Tylenol Tab) 650 mg Q6HP PRN PO HEADACHE or DISCOMFORT Last administered on 05/02/18at 00:50; Start 05/01/18 at 19:45 Al Hydrox/Mg Hydrox/Simethicone (Mylanta) 30 ml Q4HP PRN PO HEARTBURN/INDIGESTION; Start 05/01/18 at 19:45 Aripiprazole (AbiLIFY) 2.5 mg QAM PO Last administered on 05/09/18at 13:17; Start 05/09/18 at 09:00 Gabapentin (Neurontin) 400 mg TID PO Last administered on 05/09/18at 08:45; Start 05/02/18 at 16:00 Home Med (Med Rec Complete!) ASDIRECTED XX ; Start 05/01/18 at 17:45; Stop 05/01/18 at 17:45; Status DC Hydroxyzine HCl (Atarax) 25 mg Q6HP PRN PO ANXIETY/AGITATION Last administered on 05/09/18at 08:45; Start 05/01/18 at 19:45 Magnesium Hydroxide (Milk Of Magnesia) 30 ml DAILYPRN PRN PO CONSTIPATION; Start 05/01/18 at 19:45 Meloxicam (Mobic) 15 mg DAILY PO Last administered on 05/07/18at 08:30; Start 05/02/18 at 09:00; Stop 05/07/18 at 13:50; Status DC Paliperidone (Invega) 3 mg QHS PO Last administered on 05/08/18at 20:37; Start 05/02/18 at 21:00 Patient Own Medication (Patient'S Own Med) MYRBETRIQ ER 25MG ADMINIS... DAILY PO Last administered on 05/09/18at 08:46; Start 05/04/18 at 09:00 Prazosin HCl (Minipress) 2 mg QHS PO Last administered on 05/08/18at 20:37; Start 05/03/18 at 21:00 Sertraline HCl (Zoloft) 50 mg QHS PO Last administered on 05/04/18at 21:05; Start 05/02/18 at 21:00; Stop 05/05/18 at 12:05; Status DC Sertraline HCl (Zoloft) 75 mg DAILY PO ; Start 05/06/18 at 09:00; Stop 05/06/18 at 09:00; Status DC Sertraline HCl (Zoloft) 75 mg QHS PO Last administered on 05/05/18at 20:18; Start 05/05/18 at 21:00; Stop 05/06/18 at 13:54; Status DC Sertraline HCl (Zoloft) 100 mg QHS PO Last administered on 05/08/18at 20:37; Start 05/06/18 at 21:00; Stop 05/09/18 at 11:52; Status DC Sertraline HCl (Zoloft) 150 mg QHS PO ; Start 05/09/18 at 21:00 Sodium Chloride ([place] Saline Nasal Gel) 1 dose BID NA Last administered on 05/09/18at 08:46; Start 05/06/18 at 14:00 Tizanidine HCl (Zanaflex) 4 mg BID PO Last administered on 05/09/18at 08:45; Start 05/04/18 at 09:00 Tizanidine HCl (Zanaflex) 4 mg DAILY PO ; Start 05/03/18 at 09:00; Stop 05/03/18 at 09:00; Status DC Tizanidine HCl (Zanaflex) 4 mg TID PO Last administered on 05/03/18at 09:10; Start 05/02/18 at 16:00; Stop 05/03/18 at 14:22; Status DC Trazodone HCl (Desyrel) 50 mg QHSP PRN PO INSOMNIA Last administered on 05/05/18at 20:26; Start 05/01/18 at 19:45 Allergies Coded Allergies: No Known Allergies (Unverified , 05/01/18) BRIDGET COLEMAN MD May 09, 2018 14:37
[2018-05-09 18:00] VITALS: BP 112/62
[2018-05-09] MEDS: PRAZOSIN 1 MG CAP PO SCH (21:00)
[2018-05-09] MEDS ORDERED: SERTRALINE 100 MG TAB PO SCH (21:00)
[2018-05-09] MEDS: PALIPERIDONE 3 MG ER TAB (INVEGA) PO SCH (21:03)
[2018-05-10 06:24] VITALS: BP 98/58
[2018-05-10 07:39] LABS: HEMATOCRIT 38.4 % (36.0-47.0); HEMOGLOBIN 12.6 g/dl (12.0-15.5); MEAN CORPUSCULAR HEMOGLOBIN 27.4 pg (27.0-33.0); MEAN CORPUSCULAR HGB CONC 32.8 g/dl (32.0-36.5); MEAN CORPUSCULAR VOLUME 83.5 fl (80.0-96.0); PLATELET COUNT, AUTOMATED 120 10^3/uL (150-450); WHITE BLOOD COUNT 4.5 10^3/uL (4.0-10.0)
[2018-05-10] MEDS: GABAPENTIN 400 MG CAP PO SCH ×3 (08:46→21:20)
[2018-05-10] MEDS: hydrOXYzine 25 MG TAB PO PRN ×2 (08:46→21:20)
[2018-05-10] MEDS: SODIUM CHLORIDE 0.9% NASAL GEL 15GM (AYR) SCH ×2 (08:46→21:20)
[2018-05-10] MEDS: tiZANidine 4 MG TAB PO SCH ×2 (08:46→21:20)
--- NOTE | 2018-05-10 09:50 | IPNPDOC ---
Date Seen The patient was seen on 05/10/18. Progress Note PCP: PSYCHIATRIC ATTENDING: Dr. Roula Plascencia HPI: 32yoF brought to the emergency department following ingestion of 6 gabapentin, 6 tizanidine, 6 meloxicam at 0900 on 05/01/18. The patient was treated with IV fluids, poison control was consulted, the patient was medically stabilized and admitted to [facility] for unspecified depressive disorder, being medically examined today. Patient denies any fevers, night sweats, recent weight loss. Denies any bleeding or bruising. Denies any recent illnesses or respiratory illnesses. The patient states she has been found to have low platelets in the past however she denies any prior evaluation or workup. Denies any chills, weakness, fatigue, DIAZ, CP, SOB, cough, palpitations, abdominal pain, N/V/D or changes in bowel or bladder habits. PMHx: Anxiety Depression History of SI/SA Chronic back pain. The patient reports she follows with [facility] for chronic back pain. She was prescribed gabapentin and tizanidine as per orthopedics for pain. She was prescribed meloxicam as per PCP for back pain. OAB PSHX: 1 PE: GEN: 32 yo F, appears stated age. No acute distress. HEENT: Normocephalic, atraumatic. Moist mucous membranes. EXT: No lower extremity edema. SKIN: [place], dry, warm. No rashes. NEURO: No focal deficits appreciated. EKG: SINUS RHYTHM NO PRIORS FOR COMPARISON Electronically Signed On 05-01-2018 13:39:07 EST by Erick ALVARADO 05/02/18 unremarkable. Peripheral smear 05/07/18 Mild normocytic anemia with mild thrombocytopenia, possibly reactive. No abnormal immature leukocytes identified. Final: Electronically Signed by: YANN LESLIE MD 05/07/18 1330 A&P: 32yoF brought to the emergency department following ingestion of 6 gabapentin, 6 tizanidine, 6 meloxicam at 0900 on 05/01/18. The patient was treated with IV fluids, poison control was consulted, the patient was medically stabilized and admitted to [facility] for unspecified depressive disorder 1. Psych. Plan per Psychiatry. EKG on file. 2. Chronic back pain. Continue Tylenol 650 mg every 6 hours as needed. Follows as outpatient with [facility]. Consider pain management consultation if needed. 3. Normocytic anemia with low Plt. Mild anemia is resolved, Hgb 12.6 today. Plt 120, trending upward. Fe studies within normal limits, B12, folate within normal limits. PT/PTT unremarkable. Fibrinogen within normal limits Peripheral smear indicating Mild normocytic anemia with mild thrombocytopenia, possibly reactive. Continue to HOLD Meloxicam, NSAID may contribute to low Plt. Monitor CBC. Continue to monitor. 4. OAB. 5. Follow up with PCP on discharge. 6. Staff member Carmelina [facility] present throughout exam. [facility] Signs/I&O Vital Signs Date Time Temp Pulse Resp B/P (MAP) Pulse Ox O2 Delivery O2 Flow Rate FiO2 05/10/18 06:24 99.4 66 12 98/58 (71) Room Air Laboratory Data 24H LABS Laboratory Tests 2 05/10/18 07:17: Nucleated Red Blood Cells % (auto) 0.0 CBC/BMP Laboratory Tests 05/10/18 07:17 Red Blood Count 4.60, Mean Corpuscular Volume 83.5, Mean Corpuscular Hemoglobin 27.4, Mean Corpuscular Hemoglobin Concent 32.8, Red Cell Distribution Width 14.5 Sugey Ramachandran May 10, 2018 09:50
[2018-05-10 18:00] VITALS: BP 118/58
[2018-05-10] MEDS: PALIPERIDONE 3 MG ER TAB (INVEGA) PO SCH (21:20)
[2018-05-10] MEDS: SERTRALINE 100 MG TAB PO SCH (21:20)
[2018-05-10] MEDS: PRAZOSIN 1 MG CAP PO SCH (21:20)
[2018-05-11 06:39] VITALS: BP 99/54
[2018-05-11 07:18] LABS: HEMATOCRIT 39.5 % (36.0-47.0); HEMOGLOBIN 12.7 g/dl (12.0-15.5); MEAN CORPUSCULAR HGB CONC 32.2 g/dl (32.0-36.5); PLATELET COUNT, AUTOMATED 120 10^3/uL (150-450); WHITE BLOOD COUNT 3.8 10^3/uL (4.0-10.0)
[2018-05-11] MEDS: GABAPENTIN 400 MG CAP PO SCH ×3 (08:47→20:32)
[2018-05-11] MEDS: hydrOXYzine 25 MG TAB PO PRN ×2 (08:47→15:37)
[2018-05-11] MEDS: SODIUM CHLORIDE 0.9% NASAL GEL 15GM (AYR) SCH ×2 (08:47→20:30)
[2018-05-11] MEDS: tiZANidine 4 MG TAB PO SCH ×2 (08:47→20:32)
--- NOTE | 2018-05-11 11:26 | MHIPNPDOC ---
[facility] Progress Note Progress Note DATE OF SERVICE: 05/10/18 HISTORY: Chief Complaint "I overdosed". History of Present Illness HISTORY OF THE PRESENT ILLNESS: As per ED report: "Patient is a 32 -year-old , female, who, according to the ED report: "Patient is [place] [facility]. 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 She states that during the 3 months in which she was from them, she experienced severe depression & SI. She describes hav ing a very difficult marriage now, noting that she is very unhappy with her home life. She suggested that this unhappiness at home has carried over to everyday life, whether at home or not. She states that she left for work this morning & sat in the parking lot, where she took the overdose before contacting her NCO. She continues to report feeling very depressed & is non-commital regarding her current intentions (when asked about continued SI)." VITAL SIGNS: See below. NEW TEST RESULTS: See below CURRENT MEDICATIONS: See below. MENTAL STATUS EXAMINATION: General Appearance: well groomed, appears stated age, hospital scrubs/clothing Build: average Demeanor: cooperative, calm, brighter mood Eye Contact: average Activity: average, less psychomotor retardation observed Behavior: cooperative, withdrawn. her mood and affect are brighter, less psy chomotor retardation Speech: clear, spontaneous, slow, low in volume, normal tone Mood: anxious, sad, but less than in previous days Affect: more reactive, congruent with mood Thought Process: logical/linear Thought Content (Delusions): denies feeling paranoid today Thought Content (Other): Still reports SI but she thinks she would be able to stop herself from doing it because she would think of her children first, because they need her. Thought Content (Aggressive): none reported Perception (Hallucinations): not assessed today Cognition (Impairment of): attention/concentration are slowly improving Oriented: Awake, Alert, Oriented times three Insight: fair Judgment: Poor Psychosis: she said she has not seen the dots in the ceiling in 24 hours Diagnoses 1. Major Depressive disorder with psychosis 2. PTSD ASSESSMENT: Patient is in a brighter mood and affect, she seems to have a mild improvement, possibly secondary to increase in Zoloft and starting her on Abilify these two medications will be increased. Invega will be discontinued as it doesn't seem that those dots in the ceiling are true hallucinations, they could be secondary to visual problems. Invega could have contributed to her low blood pressure at night and early in the morning. I have added Abilify to her treatment as augmentation therapy. Patient seems to have severe depression, a recurrent, longtime lasting depression with some melancholic characteristics. MANAGEMENT PLAN: Increase Zoloft to 200 mgs, increase Abilify to 5 mgs PO QHS, discontinue Abilify 2.5 mgs in a.m, discontinue Invega 3 mgs PO QHS TIME SPENT: 35 minutes. Vital Signs Vital Signs Date Time Temp Pulse Resp B/P (MAP) Pulse Ox O2 Delivery O2 Flow Rate FiO2 05/11/18 06:39 98.9 83 14 99/54 (69) 05/10/18 06:24 Room Air Laboratory Data 24H Labs Laboratory Tests 2 05/11/18 07:05: Nucleated Red Blood Cells % (auto) 0.0 CBC/BMP Laboratory Tests 05/11/18 07:05 Red Blood Count 4.70, Mean Corpuscular Volume 84.0, Mean Corpuscular Hemoglobin 27.0, Mean Corpuscular Hemoglobin Concent 32.2, Red Cell Distribution Width 14.3 Current Medications Current Medications Acetaminophen (Tylenol Tab) 650 mg Q6HP PRN PO HEADACHE or DISCOMFORT Last administered on 05/02/18at 00:50; Start 05/01/18 at 19:45 Al Hydrox/Mg Hydrox/Simethicone (Mylanta) 30 ml Q4HP PRN PO HEARTBURN/INDIGESTION; Start 05/01/18 at 19:45 Aripiprazole (AbiLIFY) 2.5 mg QAM PO Last administered on 05/11/18at 08:46; Start 05/09/18 at 09:00 Gabapentin (Neurontin) 400 mg TID PO Last administered on 05/11/18at 08:47; Start 05/02/18 at 16:00 Home Med (Med Rec Complete!) ASDIRECTED XX ; Start 05/01/18 at 17:45; Stop 05/01/18 at 17:45; Status DC Hydroxyzine HCl (Atarax) 25 mg Q6HP PRN PO ANXIETY/AGITATION Last administered on 05/11/18at 08:47; Start 05/01/18 at 19:45 Magnesium Hydroxide (Milk Of Magnesia) 30 ml DAILYPRN PRN PO CONSTIPATION; Start 05/01/18 at 19:45 Meloxicam (Mobic) 15 mg DAILY PO Last administered on 05/07/18at 08:30; Start 05/02/18 at 09:00; Stop 05/07/18 at 13:50; Status DC Paliperidone (Invega) 3 mg QHS PO Last administered on 05/10/18at 21:20; Start 05/02/18 at 21:00 Patient Own Medication (Patient'S Own Med) MYRBETRIQ ER 25MG ADMINIS... DAILY PO Last administered on 05/11/18at 08:47; Start 05/04/18 at 09:00 Prazosin HCl (Minipress) 1 mg QHS PO Last administered on 05/10/18at 21:20; Start 05/10/18 at 21:00 Prazosin HCl (Minipress) 2 mg QHS PO Last administered on 05/08/18at 20:37; Start 05/03/18 at 21:00; Stop 05/09/18 at 21:16; Status DC Sertraline HCl (Zoloft) 50 mg QHS PO Last administered on 05/04/18at 21:05; Start 05/02/18 at 21:00; Stop 05/05/18 at 12:05; Status DC Sertraline HCl (Zoloft) 75 mg DAILY PO ; Start 05/06/18 at 09:00; Stop 05/06/18 at 09:00; Status DC Sertraline HCl (Zoloft) 75 mg QHS PO Last administered on 05/05/18at 20:18; Start 05/05/18 at 21:00; Stop 05/06/18 at 13:54; Status DC Sertraline HCl (Zoloft) 100 mg QHS PO Last administered on 05/08/18at 20:37; Start 05/06/18 at 21:00; Stop 05/09/18 at 11:52; Status DC Sertraline HCl (Zoloft) 150 mg QHS PO Last administered on 05/09/18at 21:03; Start 05/09/18 at 21:00; Stop 05/10/18 at 09:33; Status DC Sertraline HCl (Zoloft) 200 mg QHS PO Last administered on 05/10/18at 21:20; Start 05/10/18 at 21:00 Sodium Chloride ([place] Saline Nasal Gel) 1 dose BID NA Last administered on 05/11/18at 08:47; Start 05/06/18 at 14:00 Tizanidine HCl (Zanaflex) 4 mg BID PO Last administered on 05/11/18at 08:47; Start 05/04/18 at 09:00 Tizanidine HCl (Zanaflex) 4 mg DAILY PO ; Start 05/03/18 at 09:00; Stop 05/03/18 at 09:00; Status DC Tizanidine HCl (Zanaflex) 4 mg TID PO Last administered on 05/03/18at 09:10; Start 05/02/18 at 16:00; Stop 05/03/18 at 14:22; Status DC Trazodone HCl (Desyrel) 50 mg QHSP PRN PO INSOMNIA Last administered on 05/05/18at 20:26; Start 05/01/18 at 19:45 Allergies Coded Allergies: No Known Allergies (Unverified , 05/01/18) BRIDGET COLEMAN MD May 11, 2018 11:26
[2018-05-11 18:00] VITALS: BP 102/58
[2018-05-11] MEDS: PRAZOSIN 1 MG CAP PO SCH (20:32)
[2018-05-11] MEDS: SERTRALINE 100 MG TAB PO SCH (20:32)
[2018-05-12 06:48] VITALS: BP 103/56
[2018-05-12] MEDS: SODIUM CHLORIDE 0.9% NASAL GEL 15GM (AYR) SCH ×2 (08:44→21:07)
[2018-05-12] MEDS: tiZANidine 4 MG TAB PO SCH ×2 (08:44→21:08)
[2018-05-12] MEDS: hydrOXYzine 25 MG TAB PO PRN ×2 (08:44→15:10)
[2018-05-12] MEDS: GABAPENTIN 400 MG CAP PO SCH ×3 (08:44→21:09)
[2018-05-12 18:03] VITALS: BP 137/79
[2018-05-12] MEDS: SERTRALINE 100 MG TAB PO SCH (21:09)
[2018-05-12] MEDS: PRAZOSIN 1 MG CAP PO SCH (21:09)
[2018-05-13 06:30] LABS: HEMOGLOBIN 12.6 g/dl (12.0-15.5); MEAN CORPUSCULAR HEMOGLOBIN 27.1 pg (27.0-33.0); MEAN CORPUSCULAR HGB CONC 32.3 g/dl (32.0-36.5); MEAN CORPUSCULAR VOLUME 83.9 fl (80.0-96.0); PLATELET COUNT, AUTOMATED 131 10^3/uL (150-450); RED BLOOD COUNT 4.65 10^6/uL (4.00-5.40); WHITE BLOOD COUNT 3.8 10^3/uL (4.0-10.0)
[2018-05-13 06:35] VITALS: BP 111/62
[2018-05-13] MEDS: SODIUM CHLORIDE 0.9% NASAL GEL 15GM (AYR) SCH ×2 (08:57→20:27)
[2018-05-13] MEDS: hydrOXYzine 25 MG TAB PO PRN (08:57)
[2018-05-13] MEDS: tiZANidine 4 MG TAB PO SCH ×2 (08:57→20:25)
[2018-05-13] MEDS: GABAPENTIN 400 MG CAP PO SCH ×3 (08:57→20:26)
--- NOTE | 2018-05-13 12:08 | MHIPNPDOC ---
[facility] Progress Note Progress Note DATE OF SERVICE: 05/13/18 HISTORY: As per ED report: "Patient is a 32 -year-old , female, who, according to the ED report: "Patient is a [place] of [place] [employer], residing here x 10 years. 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 She states that during the 3 months in which she was from them, she experienced severe depression & SI. She describes having a very difficult marriage now, noting that she is very unhappy with her home life. She suggested that this unhappiness at home has carried over to everyday life, whether at home or not. She states that she left for work this morning & sat in the parking lot, where she took the overdose before contacting her NCO. She continues to report feeling very depressed & is non-commital regarding her current intentions (when asked about continued SI)." VITAL SIGNS: See below. NEW TEST RESULTS: See below. CURRENT MEDICATIONS: See below. MENTAL STATUS EXAMINATION: Patient is a 33-year old female, who is alert and cooperative, appears stated age, in hospital scrubs. Speech: Is clear, spontaneous, low in volume, normal rate and tone Language skills are intact Thought processes including: logical and linear Thought content: depressive and some anxious rumination regarding long-term treatment. Denies SI today. Description of abnormal or psychotic thoughts: Denies AV hallucinations, denies paranoia. Judgment: poor Insight: poor Orientation: oriented to person, place and time Recent and remote memory: intact Attention span and concentration: intact Language: intact Fund of knowledge: intact Mood: Depressed and anxious Affect: Mood congruent DIAGNOSES: 1. Major Depressive disorder with psychosis 2. PTSD ASSESSMENT: Patient was interviewed in her room. She continues to appear depressed and anxious. She shares that her depressive symptoms are at an 8/10, although she denies and suicidal thoughts today. She is also anxious, mostly about transitioning to long-term care. She feels benefit from her medications, and verbalizes an understanding that it will take some time for them to reach full efficacy. She has been participating in groups and has been an active part of the [employer]. She contracts for safety. MANAGEMENT PLAN: Continue current treatment plan. Anticipate discharge to long-term treatment facility. TIME SPENT: 15 minutes Vital Signs Vital Signs Date Time Temp Pulse Resp B/P (MAP) Pulse Ox O2 Delivery O2 Flow Rate FiO2 05/13/18 06:35 98.1 72 12 111/62 (78) 05/11/18 18:00 16 05/10/18 06:24 Room Air Laboratory Data 24H Labs Laboratory Tests 2 05/13/18 06:00: Nucleated Red Blood Cells % (auto) 0.0 CBC/BMP Laboratory Tests 05/13/18 06:00 Red Blood Count 4.65, Mean Corpuscular Volume 83.9, Mean Corpuscular Hemoglobin 27.1, Mean Corpuscular Hemoglobin Concent 32.3, Red Cell Distribution Width 14.2 Current Medications Current Medications Acetaminophen (Tylenol Tab) 650 mg Q6HP PRN PO HEADACHE or DISCOMFORT Last administered on 05/02/18at 00:50; Start 05/01/18 at 19:45 Al Hydrox/Mg Hydrox/Simethicone (Mylanta) 30 ml Q4HP PRN PO HEARTBURN/INDIGESTION; Start 05/01/18 at 19:45 Aripiprazole (AbiLIFY) 2.5 mg QAM PO Last administered on 05/11/18at 08:46; Start 05/09/18 at 09:00; Stop 05/11/18 at 11:22; Status DC Aripiprazole (AbiLIFY) 5 mg QHS PO Last administered on 05/12/18at 21:08; Start 05/11/18 at 21:00 Gabapentin (Neurontin) 400 mg TID PO Last administered on 05/13/18at 08:57; Start 05/02/18 at 16:00 Home Med (Med Rec Complete!) ASDIRECTED XX ; Start 05/01/18 at 17:45; Stop 05/01/18 at 17:45; Status DC Hydroxyzine HCl (Atarax) 25 mg Q6HP PRN PO ANXIETY/AGITATION Last administered on 05/13/18at 08:57; Start 05/01/18 at 19:45 Magnesium Hydroxide (Milk Of Magnesia) 30 ml DAILYPRN PRN PO CONSTIPATION; Start 05/01/18 at 19:45 Meloxicam (Mobic) 15 mg DAILY PO Last administered on 05/07/18at 08:30; Start 05/02/18 at 09:00; Stop 05/07/18 at 13:50; Status DC Paliperidone (Invega) 3 mg QHS PO Last administered on 05/10/18at 21:20; Start 05/02/18 at 21:00; Stop 05/11/18 at 11:22; Status DC Patient Own Medication (Patient'S Own Med) MYRBETRIQ ER 25MG ADMINIS... DAILY PO Last administered on 05/13/18at 08:56; Start 05/04/18 at 09:00 Prazosin HCl (Minipress) 1 mg QHS PO Last administered on 05/12/18at 21:09; St art 05/10/18 at 21:00 Prazosin HCl (Minipress) 2 mg QHS PO Last administered on 05/08/18at 20:37; St art 05/03/18 at 21:00; Stop 05/09/18 at 21:16; Status DC Sertraline HCl (Zoloft) 50 mg QHS PO Last administered on 05/04/18at 21:05; Start 05/02/18 at 21:00; Stop 05/05/18 at 12:05; Status DC Sertraline HCl (Zoloft) 75 mg DAILY PO ; Start 05/06/18 at 09:00; Stop 05/06/18 at 09:00; Status DC Sertraline HCl (Zoloft) 75 mg QHS PO Last administered on 05/05/18at 20:18; Start 05/05/18 at 21:00; Stop 05/06/18 at 13:54; Status DC Sertraline HCl (Zoloft) 100 mg QHS PO Last administered on 05/08/18at 20:37; Start 05/06/18 at 21:00; Stop 05/09/18 at 11:52; Status DC Sertraline HCl (Zoloft) 150 mg QHS PO Last administered on 05/09/18at 21:03; Start 05/09/18 at 21:00; Stop 05/10/18 at 09:33; Status DC Sertraline HCl (Zoloft) 200 mg QHS PO Last administered on 05/12/18at 21:09; Start 05/10/18 at 21:00 Sodium Chloride ([place] Saline Nasal Gel) 1 dose BID NA Last administered on 05/13/18at 08:57; Start 05/06/18 at 14:00 Tizanidine HCl (Zanaflex) 4 mg BID PO Last administered on 05/13/18at 08:57; S tart 05/04/18 at 09:00 Tizanidine HCl (Zanaflex) 4 mg DAILY PO ; Start 05/03/18 at 09:00; Stop 05/03/18 at 09:00; Status DC Tizanidine HCl (Zanaflex) 4 mg TID PO Last administered on 05/03/18at 09:10; Start 05/02/18 at 16:00; Stop 05/03/18 at 14:22; Status DC Trazodone HCl (Desyrel) 50 mg QHSP PRN PO INSOMNIA Last administered on 05/05/18at 20:26; Start 05/01/18 at 19:45 Allergies Coded Allergies: No Known Allergies (Unverified , 05/01/18) GME ATTESTATION GME ATTESTATION My faculty preceptor for this patient encounter was physically present during the encounter and was fully available. All aspects of the patient interview, examination, medical decision making process, and medical care plan development were reviewed and approved by the faculty preceptor. The faculty preceptor is aware and concurs with the plan as stated in the body of this note and will attest to such by his/her cosignature. ALLISON BENAVIDES DO May 13, 2018 12:08
[2018-05-13 18:00] VITALS: BP 100/64
[2018-05-13] MEDS: SERTRALINE 100 MG TAB PO SCH (20:26)
[2018-05-13] MEDS: PRAZOSIN 1 MG CAP PO SCH (20:26)
[2018-05-14 07:00] VITALS: BP 107/70
[2018-05-14] MEDS: SODIUM CHLORIDE 0.9% NASAL GEL 15GM (AYR) SCH ×2 (08:34→20:13)
[2018-05-14] MEDS: tiZANidine 4 MG TAB PO SCH ×2 (08:34→20:11)
[2018-05-14] MEDS: GABAPENTIN 400 MG CAP PO SCH ×3 (08:34→20:11)
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
[2018-05-14 18:32] VITALS: BP 138/72
[2018-05-14] MEDS: SERTRALINE 100 MG TAB PO SCH (20:11)
[2018-05-14] MEDS: PRAZOSIN 1 MG CAP PO SCH (20:12)
[2018-05-15 06:34] LABS: HEMATOCRIT 38.1 % (36.0-47.0); HEMOGLOBIN 12.6 g/dl (12.0-15.5); MEAN CORPUSCULAR HEMOGLOBIN 27.5 pg (27.0-33.0); MEAN CORPUSCULAR HGB CONC 33.1 g/dl (32.0-36.5); MEAN CORPUSCULAR VOLUME 83.2 fl (80.0-96.0); PLATELET COUNT, AUTOMATED 156 10^3/uL (150-450); RED BLOOD COUNT 4.58 10^6/uL (4.00-5.40); WHITE BLOOD COUNT 3.7 10^3/uL (4.0-10.0)
[2018-05-15 07:00] VITALS: BP 99/58
[2018-05-15] MEDS: GABAPENTIN 400 MG CAP PO SCH ×3 (08:51→20:27)
[2018-05-15] MEDS: tiZANidine 4 MG TAB PO SCH ×2 (08:51→20:26)
[2018-05-15] MEDS: SODIUM CHLORIDE 0.9% NASAL GEL 15GM (AYR) SCH ×2 (08:51→20:24)
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
[2018-05-15 18:45] VITALS: BP 110/73
[2018-05-15] MEDS: PRAZOSIN 1 MG CAP PO SCH (20:26)
[2018-05-15] MEDS: traZODone 50 MG TAB PO PRN (20:27)
[2018-05-15] MEDS: SERTRALINE 100 MG TAB PO SCH (20:27)
[2018-05-16 06:31] VITALS: BP 98/62
[2018-05-16] MEDS: GABAPENTIN 400 MG CAP PO SCH ×3 (08:21→20:34)
[2018-05-16] MEDS: tiZANidine 4 MG TAB PO SCH ×2 (08:22→20:36)
[2018-05-16] MEDS: SODIUM CHLORIDE 0.9% NASAL GEL 15GM (AYR) SCH ×2 (08:22→20:36)
[2018-05-16 18:00] VITALS: BP 120/72
[2018-05-16] MEDS: SERTRALINE 100 MG TAB PO SCH (20:34)
[2018-05-16] MEDS: PRAZOSIN 1 MG CAP PO SCH (20:36)
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
[2018-05-17 06:43] VITALS: BP 132/75
[2018-05-17] MEDS: SODIUM CHLORIDE 0.9% NASAL GEL 15GM (AYR) SCH ×2 (08:40→20:13)
[2018-05-17] MEDS: tiZANidine 4 MG TAB PO SCH ×2 (08:40→20:14)
[2018-05-17] MEDS: GABAPENTIN 400 MG CAP PO SCH ×3 (08:40→20:14)
[2018-05-17] MEDS: ACETAMINOPHEN TAB 650MG DOSE (2X325MG) PO PRN (09:35)
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
[2018-05-17 18:23] VITALS: BP 120/77
[2018-05-17] MEDS: SERTRALINE 100 MG TAB PO SCH (20:14)
[2018-05-17] MEDS: PRAZOSIN 1 MG CAP PO SCH (20:14)
[2018-05-18 06:15] VITALS: BP 99/54
[2018-05-18] MEDS: tiZANidine 4 MG TAB PO SCH ×2 (09:11→20:18)
[2018-05-18] MEDS: GABAPENTIN 400 MG CAP PO SCH ×3 (09:11→20:18)
[2018-05-18] MEDS: SODIUM CHLORIDE 0.9% NASAL GEL 15GM (AYR) SCH ×2 (09:12→20:18)
[2018-05-18 18:00] VITALS: BP 111/78
[2018-05-18] MEDS: SERTRALINE 100 MG TAB PO SCH (20:18)
[2018-05-18] MEDS: PRAZOSIN 1 MG CAP PO SCH (20:19)
[2018-05-19 06:22] VITALS: BP 119/56
[2018-05-19] MEDS: SODIUM CHLORIDE 0.9% NASAL GEL 15GM (AYR) SCH ×2 (09:02→20:08)
[2018-05-19] MEDS: tiZANidine 4 MG TAB PO SCH ×2 (09:02→20:08)
[2018-05-19] MEDS: GABAPENTIN 400 MG CAP PO SCH ×3 (09:02→20:08)
[2018-05-19 18:00] VITALS: BP 102/62
[2018-05-19] MEDS: SERTRALINE 100 MG TAB PO SCH (20:09)
[2018-05-19] MEDS: PRAZOSIN 1 MG CAP PO SCH (20:09)
[2018-05-20 06:00] VITALS: BP_SYST 113; BP_SYST 122; BP_DIAS 68; BP_DIAS 69
[2018-05-20] MEDS: SODIUM CHLORIDE 0.9% NASAL GEL 15GM (AYR) SCH ×2 (08:41→20:15)
[2018-05-20] MEDS: GABAPENTIN 400 MG CAP PO SCH ×3 (08:42→20:14)
[2018-05-20] MEDS: ACETAMINOPHEN TAB 650MG DOSE (2X325MG) PO PRN (08:43)
[2018-05-20] MEDS: tiZANidine 4 MG TAB PO SCH ×3 (08:43→20:14)
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
--- NOTE | 2018-05-20 15:48 | REP ---
Lumbar spine series: Five views. History: Low back pain. Increasing frequency and severity. Findings: Lumbar vertebral body heights are preserved. Alignment is normal. Disc spaces are maintained. Pedicles and posterior elements are intact. There is no evidence of spondylolysis or spondylolisthesis. Sacrum and SI joints are intact. Psoas margins are symmetric. An IUD is seen in the true pelvis in position suggesting retroverted uterus. Impression: Normal lumbar spine radiographs. Electronically Signed by Ahsan Gao MD 05/20/2018 03:40 P
[2018-05-20 18:34] VITALS: BP 114/70
[2018-05-20] MEDS: LIDOCAINE 5% (LIDODERM) PATCH TD PRN (20:14)
[2018-05-20] MEDS: SERTRALINE 100 MG TAB PO SCH (20:14)
[2018-05-20] MEDS: PRAZOSIN 1 MG CAP PO SCH (20:15)
[2018-05-20] MEDS: **NOTE PATIENT COMMENT** MISC XX SCH (20:16)
[2018-05-21 06:49] VITALS: BP 101/56
[2018-05-21] MEDS: SODIUM CHLORIDE 0.9% NASAL GEL 15GM (AYR) SCH ×2 (08:51→20:19)
[2018-05-21] MEDS: tiZANidine 4 MG TAB PO SCH ×3 (08:52→20:19)
[2018-05-21] MEDS: GABAPENTIN 400 MG CAP PO SCH ×3 (08:52→20:21)
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
[2018-05-21 18:00] VITALS: BP 117/73
[2018-05-21] MEDS: SERTRALINE 100 MG TAB PO SCH (20:21)
[2018-05-21] MEDS: PRAZOSIN 1 MG CAP PO SCH (20:21)
[2018-05-21] MEDS: **NOTE PATIENT COMMENT** MISC XX SCH (20:23)
[2018-05-22 06:39] VITALS: BP 119/73
[2018-05-22] MEDS: SODIUM CHLORIDE 0.9% NASAL GEL 15GM (AYR) SCH ×2 (08:59→20:27)
[2018-05-22] MEDS: GABAPENTIN 400 MG CAP PO SCH ×3 (09:00→20:27)
[2018-05-22] MEDS: tiZANidine 4 MG TAB PO SCH ×3 (09:00→20:27)
[2018-05-22 18:00] VITALS: BP 124/62
--- NOTE | 2018-05-22 18:28 | MHIPNPDOC ---
[facility] Progress Note Progress Note DATE OF SERVICE: 05/22/18 HISTORY: As per ED report: "Patient is a 32 -year-old , female, who, according to the ED report: "Patient is a [place] of [place] [employer], residing here x 10 years. 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 She states that during the 3 months in which she was from them, she experienced severe depression & SI. She describes having a very difficult marriage now, noting that she is very unhappy with her home life. She suggested that this unhappiness at home has carried over to everyday life, whether at home or not. She states that she left for work this morning & sat in the parking lot, where she took the overdose before contacting her NCO. She continues to report feeling very depressed & is non-commital regarding her current intentions (when asked about continued SI)." VITAL SIGNS: See below. NEW TEST RESULTS: See below. CURRENT MEDICATIONS: See below. MENTAL STATUS EXAMINATION: Patient is a 33-year old female, who is alert and cooperative, appears stated age, in personal clothes, appropriate grooming Speech: Is clear, spontaneous, low in volume, normal rate and tone Language skills: intact Thought processes including: logical and linear Thought content: goal directed, she hopes to be transferred to halfway facility in [place]. She denies SI/HI, denies AV hallucinations, denies thought delusions Description of abnormal or psychotic thoughts: Denies AV hallucinations, denies paranoia. Judgment: improving Insight: improving Orientation: oriented to person, place and time Recent and remote memory: intact Attention span and concentration: intact Language: intact Fund of knowledge: intact Mood: sad/ depressed Affect: Mood congruent DIAGNOSES: 1. Major Depressive disorder with psychosis 2. PTSD ASSESSMENT: Patient was seen in her room today. She is worried about her back pain, she says that she has got only a partial relief from the Lidoderm Patch. This administrative underwriter ordered Ibuprofen and discontinued Tylenol. f she doesn't improve with Ibuprofen, maybe an MRI (lumbar) should proceed. Patient is optimistic about her transfer to a halfway treatment facility in [place]. MANAGEMENT PLAN: Continue Tizanidine TID. Continue Rx for Lidoderm patch to be placed on patient's lower back PRN, once da danny. Continue current treatment plan. Anticipate discharge to long-term treatment facility in [place]. Vital Signs Vital Signs Date Time Temp Pulse Resp B/P (MAP) Pulse Ox O2 Delivery O2 Flow Rate FiO2 05/22/18 08:39 Room Air 05/22/18 06:39 97.6 71 16 119/73 (88) Current Medications Current Medications Acetaminophen (Tylenol Tab) 650 mg Q6HP PRN PO HEADACHE or DISCOMFORT Last administered on 05/20/18at 08:43; Start 05/01/18 at 19:45; Stop 05/22/18 at 15:34; Status DC Al Hydrox/Mg Hydrox/Simethicone (Mylanta) 30 ml Q4HP PRN PO H EARTBURN/INDIGESTION; Start 05/01/18 at 19:45 Aripiprazole (AbiLIFY) 2.5 mg QAM PO Last administered on 05/11/18at 08:46; Start 05/09/18 at 09:00; Stop 05/11/18 at 11:22; Status DC Aripiprazole (AbiLIFY) 5 mg QHS PO Last administered on 05/21/18at 20:19; Start 05/11/18 at 21:00 Gabapentin (Neurontin) 400 mg TID PO Last administered on 05/22/18at 15:35; Start 05/02/18 at 16:00 Home Med (Med Rec Complete!) ASDIRECTED XX ; Start 05/01/18 at 17:45; Stop 05/01/18 at 17:45; Status DC Hydroxyzine HCl (Atarax) 25 mg Q6HP PRN PO ANXIETY/AGITATION Last administered on 05/13/18at 08:57; Start 05/01/18 at 19:45 Ibuprofen (Advil) 600 mg Q6HP PRN PO MODERATE PAIN (PS 5-7); Start 05/22/18 at 15:45 Lidocaine (Lidoderm Patch) 1 patch DAILY PRN TD BACK PAIN Last administered on 05/20/18at 20:14; Start 05/20/18 at 12:00 Magnesium Hydroxide (Milk Of Magnesia) 30 ml DAILYPRN PRN PO CONSTIPATION; Start 05/01/18 at 19:45 Meloxicam (Mobic) 15 mg DAILY PO Last administered on 05/07/18at 08:30; Start 05/02/18 at 09:00; Stop 05/07/18 at 13:50; Status DC Non-Formulary Medication ( See Comment Field Below ) REMOVE LIDODERM PATCH... DAILY@21 XX ; Start 05/20/18 at 21:00 Paliperidone (Invega) 3 mg QHS PO Last administered on 05/10/18at 21:20; Start 05/02/18 at 21:00; Stop 05/11/18 at 11:22; Status DC Patient Own Medication (Patient'S Own Med) MYRBETRIQ ER 25MG ADMINIS... DAILY PO Last administered on 05/22/18at 08:59; Start 05/04/18 at 09:00 Prazosin HCl (Minipress) 1 mg QHS PO Last administered on 05/21/18at 20:21; Start 05/10/18 at 21:00 Prazosin HCl (Minipress) 2 mg QHS PO Last administered on 05/08/18at 20:37; Start 05/03/18 at 21:00; Stop 05/09/18 at 21:16; Status DC Sertraline HCl (Zoloft) 50 mg QHS PO Last administered on 05/04/18at 21:05; Start 05/02/18 at 21:00; Stop 05/05/18 at 12:05; Status DC Sertraline HCl (Zoloft) 75 mg DAILY PO ; Start 05/06/18 at 09:00; Stop 05/06/18 at 09:00; Status DC Sertraline HCl (Zoloft) 75 mg QHS PO Last administered on 05/05/18at 20:18; Start 05/05/18 at 21:00; Stop 05/06/18 at 13:54; Status DC Sertraline HCl (Zoloft) 100 mg QHS PO Last administered on 05/08/18at 20:37; Start 05/06/18 at 21:00; Stop 05/09/18 at 11:52; Status DC Sertraline HCl (Zoloft) 150 mg QHS PO Last administered on 05/09/18at 21:03; Start 05/09/18 at 21:00; Stop 05/10/18 at 09:33; Status DC Sertraline HCl (Zoloft) 200 mg QHS PO Last administered on 05/21/18at 20:21; Start 05/10/18 at 21:00 Sodium Chloride ([place] Saline Nasal Gel) 1 dose BID NA Last administered on 05/22/18 08:59; Start 05/06/18 at 14:00 Tizanidine HCl (Zanaflex) 4 mg BID PO Last administered on 05/20/18at 08:43; Start 05/04/18 at 09:00; Stop 05/20/18 at 12:01; Status DC Tizanidine HCl (Zanaflex) 4 mg DAILY PO ; Start 05/03/18 at 09:00; Stop 05/03/18 at 09:00; Status DC Tizanidine HCl (Zanaflex) 4 mg TID PO Last administered on 05/03/18at 09:10; Start 05/02/18 at 16:00; Stop 05/03/18 at 14:22; Status DC Tizanidine HCl (Zanaflex) 4 mg TID PO Last administered on 05/22/18at 15:35; Start 05/20/18 at 16:00 Trazodone HCl (Desyrel) 50 mg QHSP PRN PO INSOMNIA Last administered on 05/15/18at 20:27; Start 05/01/18 at 19:45 Allergies Coded Allergies: No Known Allergies (Unverified , 05/01/18) BRIDGET COLEMAN MD May 22, 2018 18:28
[2018-05-22] MEDS: SERTRALINE 100 MG TAB PO SCH (20:27)
[2018-05-22] MEDS: PRAZOSIN 1 MG CAP PO SCH (20:27)
[2018-05-22] MEDS: **NOTE PATIENT COMMENT** MISC XX SCH (20:28)
[2018-05-22] MEDS: LIDOCAINE 5% (LIDODERM) PATCH TD PRN (21:04)
[2018-05-23 07:01] VITALS: BP 117/68
[2018-05-23] MEDS: GABAPENTIN 400 MG CAP PO SCH ×3 (08:38→20:49)
[2018-05-23] MEDS: SODIUM CHLORIDE 0.9% NASAL GEL 15GM (AYR) SCH ×2 (08:38→20:49)
[2018-05-23] MEDS: tiZANidine 4 MG TAB PO SCH ×3 (08:38→20:49)
[2018-05-23] MEDS: **NOTE PATIENT COMMENT** MISC XX PRN (16:14)
--- NOTE | 2018-05-23 16:50 | MHIPNPDOC ---
[facility] Progress Note Progress Note DATE OF SERVICE: 05/23/18 HISTORY: As per ED report: "Patient is a 32 -year-old , female, who, according to the ED report: "Patient is a [place] of [place], residing here x 10 years. 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 She states that during the 3 months in which she was from them, she experienced severe depression & SI. She describes having a very difficult marriage now, noting that she is very unhappy with her home life. She suggested that this unhappiness at home has carried over to everyday life, whether at home or not. She states that she left for work this morning & sat in the parking lot, where she took the overdose before contacting her NCO. She continues to report feeling very depressed & is non-commital regarding her current intentions (when asked about continued SI)." VITAL SIGNS: See below. NEW TEST RESULTS: See below. CURRENT MEDICATIONS: See below. MENTAL STATUS EXAMINATION: Patient is a 33-year old female, who is alert and cooperative, appears stated age, in personal clothes, appropriate grooming Speech: Is clear, spontaneous, low in volume, normal rate and tone Language skills: intact Thought processes including: logical and linear Thought content: goal directed, she hopes to be transferred to half-way facility in [place]. She denies SI/HI, denies AV hallucinations, denies thought delusions Description of abnormal or psychotic thoughts: Denies AV hallucinations, denies paranoia. Judgment: improving Insight: improving Orientation: oriented to person, place and time Recent and remote memory: intact Attention span and concentration: intact Language: intact Fund of knowledge: intact Mood: sad/ depressed Affect: Mood congruent DIAGNOSES: 1. Major Depressive disorder with psychosis 2. PTSD ASSESSMENT: MRI of lower back, lumbar spine, is normal. Told her she has Ibuprofen PRN so that she takes it if she is in severe pain. It was 4/10 when she woke up and now is a 4/10 but when she lays down at night time, is a 7/10. she denies medications side effects. MANAGEMENT PLAN: Continue Tizanidine TID. Continue Rx for Lidoderm patch to be placed on patient's lower back PRN, once daily. Ibuprofen 600 mgs Po Q6HP for back pain Continue current treatment plan. Anticipate discharge to long-term treatment facility in [place]. TIME SPENT: 20 MINUTES Vital Signs Vital Signs Date Time Temp Pulse Resp B/P (MAP) Pulse Ox O2 Delivery O2 Flow Rate FiO2 05/23/18 07:01 99.4 70 16 117/68 (84) 05/22/18 08:39 Room Air Current Medications Current Medications Acetaminophen (Tylenol Tab) 650 mg Q6HP PRN PO HEADACHE or DISCOMFORT Last administered on 05/20/18at 08:43; Start 05/01/18 at 19:45; Stop 05/22/18 at 15:34; Status DC Al Hydrox/Mg Hydrox/Simethicone (Mylanta) 30 ml Q4HP PRN PO HEARTBURN/INDIGESTION; Start 05/01/18 at 19:45 Aripiprazole (AbiLIFY) 2.5 mg QAM PO Last administered on 05/11/18at 08:46; Start 05/09/18 at 09:00; Stop 05/11/18 at 11:22; Status DC Aripiprazole (AbiLIFY) 5 mg QHS PO Last administered on 05/22/18at 20:27; Start 05/11/18 at 21:00 Gabapentin (Neurontin) 400 mg TID PO Last administered on 05/23/18at 08:38; Start 05/02/18 at 16:00 Home Med (Med Rec Complete!) ASDIRECTED XX ; Start 05/01/18 at 17:45; Stop 05/01/18 at 17:45; Status DC Hydroxyzine HCl (Atarax) 25 mg Q6HP PRN PO ANXIETY/AGITATION Last administered on 05/13/18at 08:57; Start 05/01/18 at 19:45 Ibuprofen (Advil) 600 mg Q6HP PRN PO MODERATE PAIN (PS 5-7); Start 05/22/18 at 15:45 Lidocaine (Lidoderm Patch) 1 patch DAILY PRN TD BACK PAIN Last administered on 05/22/18at 21:04; Start 05/20/18 at 12:00 Magnesium Hydroxide (Milk Of Magnesia) 30 ml DAILYPRN PRN PO CONSTIPATION; Start 05/01/18 at 19:45 Meloxicam (Mobic) 15 mg DAILY PO Last administered on 05/07/18at 08:30; Start 05/02/18 at 09:00; Stop 05/07/18 at 13:50; Status DC Non-Formulary Medication ( See Comment Field Below ) REMOVE LIDODERM PATCH... DAILY@21 XX ; Start 05/20/18 at 21:00; Stop 05/22/18 at 20:41; Status DC Non-Formulary Medication ( See Comment Field Below ) REMOVE LIDODERM PATCH... DAILYPRN PRN XX SEE LABEL COMMENTS; Start 05/22/18 at 20:41 Paliperidone (Invega) 3 mg QHS PO Last administered on 05/10/18at 21:20; Start 05/02/18 at 21:00; Stop 05/11/18 at 11:22; Status DC Patient Own Medication (Patient'S Own Med) MYRBETRIQ ER 25MG ADMINIS... DAILY PO Last administered on 05/23/18at 08:37; Start 05/04/18 at 09:00 Prazosin HCl (Minipress) 1 mg QHS PO Last administered on 05/22/18at 20:27; Start 05/10/18 at 21:00 Prazosin HCl (Minipress) 2 mg QHS PO Last administered on 05/08/18at 20:37; Start 05/03/18 at 21:00; Stop 05/09/18 at 21:16; Status DC Sertraline HCl (Zoloft) 50 mg QHS PO Last administered on 05/04/18at 21:05; Start 05/02/18 at 21:00; Stop 05/05/18 at 12:05; Status DC Sertraline HCl (Zoloft) 75 mg DAILY PO ; Start 05/06/18 at 09:00; Stop 05/06/18 at 09:00; Status DC Sertraline HCl (Zoloft) 75 mg QHS PO Last administered on 05/05/18at 20:18; Start 05/05/18 at 21:00; Stop 05/06/18 at 13:54; Status DC Sertraline HCl (Zoloft) 100 mg QHS PO Last administered on 05/08/18 20:37; Start 05/06/18 at 21:00; Stop 05/09/18 at 11:52; Status DC Sertraline HCl (Zoloft) 150 mg QHS PO Last administered on 05/09/18at 21:03; Start 05/09/18 at 21:00; Stop 05/10/18 at 09:33; Status DC Sertraline HCl (Zoloft) 200 mg QHS PO Last administered on 05/22/18 20:27; Start 05/10/18 at 21:00 Sodium Chloride ([place] Saline Nasal Gel) 1 dose BID NA Last administered on 05/23/18 08:38; Start 05/06/18 at 14:00 Tizanidine HCl (Zanaflex) 4 mg BID PO Last administered on 05/20/18at 08:43; Start 05/04/18 at 09:00; Stop 05/20/18 at 12:01; Status DC Tizanidine HCl (Zanaflex) 4 mg DAILY PO ; Start 05/03/18 at 09:00; Stop 05/03/18 at 09:00; Status DC Tizanidine HCl (Zanaflex) 4 mg TID PO Last administered on 05/03/18at 09:10; Start 05/02/18 at 16:00; Stop 05/03/18 at 14:22; Status DC Tizanidine HCl (Zanaflex) 4 mg TID PO Last administered on 05/23/18 08:38; Start 05/20/18 at 16:00 Trazodone HCl (Desyrel) 50 mg QHSP PRN PO INSOMNIA Last administered on 05/15/18at 20:27; Start 05/01/18 at 19:45 Allergies Coded Allergies: No Known Allergies (Unverified , 05/01/18) BRIDGET COLEMAN MD May 23, 2018 15:35
[2018-05-23 18:00] VITALS: BP 133/83
[2018-05-23] MEDS: PRAZOSIN 1 MG CAP PO SCH (20:49)
[2018-05-23] MEDS: SERTRALINE 100 MG TAB PO SCH (20:49)
[2018-05-23] MEDS: IBUPROFEN 600 MG TAB PO PRN (20:50)
[2018-05-23] MEDS: LIDOCAINE 5% (LIDODERM) PATCH TD PRN (20:50)
[2018-05-24 07:41] VITALS: BP 117/70
[2018-05-24] MEDS: SODIUM CHLORIDE 0.9% NASAL GEL 15GM (AYR) SCH ×2 (08:19→20:45)
[2018-05-24] MEDS: tiZANidine 4 MG TAB PO SCH ×2 (08:20→20:44)
[2018-05-24] MEDS: GABAPENTIN 400 MG CAP PO SCH ×3 (08:20→20:45)
[2018-05-24] MEDS: **NOTE PATIENT COMMENT** MISC XX PRN (08:21)
[2018-05-24] MEDS ORDERED: LORazepam 2 MG TAB PO ONE (12:00)
--- NOTE | 2018-05-24 14:23 | MHIPNPDOC ---
[facility] Progress Note Progress Note DATE OF SERVICE: 05/24/18 HISTORY: As per ED report: "Patient is a 32 -year-old , female, who, according to the ED report: "Patient is a [place] of [place] [employer], residing here x 10 years. 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 She states that during the 3 months in which she was from them, she experienced severe depression & SI. She describes having a very difficult marriage now, noting that she is very unhappy with her home life. She suggested that this unhappiness at home has carried over to everyday life, whether at home or not. She states that she left for work this morning & sat in the parking lot, where she took the overdose before contacting her NCO. She continues to report feeling very depressed & is non-commital regarding her current intentions (when asked about continued SI)." VITAL SIGNS: See below. NEW TEST RESULTS: See below. CURRENT MEDICATIONS: See below. MENTAL STATUS EXAMINATION: Patient is a 33-year old female, who is alert and cooperative, appears stated age, in personal clothes, appropriate grooming Speech: Is clear, spontaneous, low in volume, normal rate and tone Language skills: intact Thought processes including: logical and linear Thought content: Had discussion with her last evening about possibility of . She denies SI/HI, denies AV hallucinations, denies thought delusions Description of abnormal or psychotic thoughts: Denies AV hallucinations, denies paranoia. Judgment: improving Insight: improving Orientation: oriented to person, place and time Recent and remote memory: intact Attention span and concentration: intact Language: intact Fund of knowledge: intact Mood: anxious/depressed Affect: Mood congruent DIAGNOSES: 1. Major Depressive disorder with psychosis 2. PTSD ASSESSMENT: Patient was interviewed today. She shares that she had a long discussion with her last evening regarding the possibility of when she returns from long-term treatment. She does not regret telling her how she feels and even feels somewhat relieved. She does complain of continued anxiety but hopes it is fleeting. Order placed for one-time Ativan. Rubina was also reminded that she has ibuprofen available to her for her back pain should she need increased relief. MANAGEMENT PLAN: Ativan 2 mg once for anxiety. Continue Tizanidine TID. Continue Rx for Lidoderm patch to be placed on patient's lower back PRN, once daily. Ibuprofen 600 mgs Po Q6HP for back pain Continue current treatment plan. Anticipate discharge to long-term treatment facility in [place]. TIME SPENT: 20 MINUTES Vital Signs Vital Signs Date Time Temp Pulse Resp B/P (MAP) Pulse Ox O2 Delivery O2 Flow Rate FiO2 05/24/18 07:41 99.7 72 16 117/70 (86) 05/22/18 08:39 Room Air Current Medications Current Medications Acetaminophen (Tylenol Tab) 650 mg Q6HP PRN PO HEADACHE or DISCOMFORT Last administered on 05/20/18at 08:43; Start 05/01/18 at 19:45; Stop 05/22/18 at 15:34; Status DC Al Hydrox/Mg Hydrox/Simethicone (Mylanta) 30 ml Q4HP PRN PO HEARTBURN/INDIGESTION; Start 05/01/18 at 19:45 Aripiprazole (AbiLIFY) 2.5 mg QAM PO Last administered on 05/11/18at 08:46; Start 05/09/18 at 09:00; Stop 05/11/18 at 11:22; Status DC Aripiprazole (AbiLIFY) 5 mg QHS PO Last administered on 05/23/18at 20:50; Start 05/11/18 at 21:00 Gabapentin (Neurontin) 400 mg TID PO Last administered on 05/24/18at 08:20; Start 05/02/18 at 16:00 Home Med (Med Rec Complete!) ASDIRECTED XX ; Start 05/01/18 at 17:45; Stop 05/01/18 at 17:45; Status DC Hydroxyzine HCl (Atarax) 25 mg Q6HP PRN PO ANXIETY/AGITATION Last administered on 05/13/18at 08:57; Start 05/01/18 at 19:45 Ibuprofen (Advil) 600 mg Q6HP PRN PO MODERATE PAIN (PS 5-7) Last administered on 05/23/18at 20:50; Start 05/22/18 at 15:45 Lidocaine (Lidoderm Patch) 1 patch DAILY PRN TD BACK PAIN Last administered on 05/23/18at 20:50; Start 05/20/18 at 12:00 Magnesium Hydroxide (Milk Of Magnesia) 30 ml DAILYPRN PRN PO CONSTIPATION; Start 05/01/18 at 19:45 Meloxicam (Mobic) 15 mg DAILY PO Last administered on 05/07/18at 08:30; Start 05/02/18 at 09:00; Stop 05/07/18 at 13:50; Status DC Non-Formulary Medication ( See Comment Field Below ) REMOVE LIDODERM PATCH... DAILY@21 XX ; Start 05/20/18 at 21:00; Stop 05/22/18 at 20:41; Status DC Non-Formulary Medication ( See Comment Field Below ) REMOVE LIDODERM PATCH... DAILYPRN PRN XX SEE LABEL COMMENTS Last administered on 05/24/18at 08:21 ; Start 05/22/18 at 20:41 Paliperidone (Invega) 3 mg QHS PO Last administered on 05/10/18at 21:20; Start 05/02/18 at 21:00; Stop 05/11/18 at 11:22; Status DC Patient Own Medication (Patient'S Own Med) MYRBETRIQ ER 25MG ADMINIS... DAILY PO Last administered on 05/24/18at 08:20; Start 05/04/18 at 09:00 Prazosin HCl (Minipress) 1 mg QHS PO Last administered on 05/23/18at 20:49; Start 05/10/18 at 21:00 Prazosin HCl (Minipress) 2 mg QHS PO Last administered on 05/08/18at 20:37; Start 05/03/18 at 21:00; Stop 05/09/18 at 21:16; Status DC Sertraline HCl (Zoloft) 50 mg QHS PO Last administered on 05/04/18at 21:05; Start 05/02/18 at 21:00; Stop 05/05/18 at 12:05; Status DC Sertraline HCl (Zoloft) 75 mg DAILY PO ; Start 05/06/18 at 09:00; Stop 05/06/18 at 09:00; Status DC Sertraline HCl (Zoloft) 75 mg QHS PO Last administered on 05/05/18 20:18; Start 05/05/18 at 21:00; Stop 05/06/18 at 13:54; Status DC Sertraline HCl (Zoloft) 100 mg QHS PO Last administered on 05/08/18at 20:37; Start 05/06/18 at 21:00; Stop 05/09/18 at 11:52; Status DC Sertraline HCl (Zoloft) 150 mg QHS PO Last administered on 05/09/18at 21:03; Start 05/09/18 at 21:00; Stop 05/10/18 at 09:33; Status DC Sertraline HCl (Zoloft) 200 mg QHS PO Last administered on 05/23/18at 20:49; Start 05/10/18 at 21:00 Sodium Chloride ([place] Saline Nasal Gel) 1 dose BID NA Last administered on 05/24/18at 08:19; Start 05/06/18 at 14:00 Tizanidine HCl (Zanaflex) 4 mg BID PO Last administered on 05/20/18at 08:43; Start 05/04/18 at 09:00; Stop 05/20/18 at 12:01; Status DC Tizanidine HCl (Zanaflex) 4 mg DAILY PO ; Start 05/03/18 at 09:00; Stop 05/03/18 at 09:00; Status DC Tizanidine HCl (Zanaflex) 4 mg QAM PO Last administered on 05/24/18at 08:20; Start 05/24/18 at 09:00 Tizanidine HCl (Zanaflex) 4 mg TID PO Last administered on 05/03/18at 09:10; Start 05/02/18 at 16:00; Stop 05/03/18 at 14:22; Status DC Tizanidine HCl (Zanaflex) 4 mg TID PO Last administered on 05/23/18at 16:23; Start 05/20/18 at 16:00; Stop 05/23/18 at 16:55; Status DC Tizanidine HCl (Zanaflex) 8 mg QHS PO Last administered on 05/23/18at 20:49; Start 05/23/18 at 21:00 Trazodone HCl (Desyrel) 50 mg QHSP PRN PO INSOMNIA Last administered on 05/15/18at 20:27; Start 05/01/18 at 19:45 Allergies Coded Allergies: No Known Allergies (Unverified , 05/01/18) GME ATTESTATION GME ATTESTATION My faculty preceptor for this patient encounter was physically present during the encounter and was fully available. All aspects of the patient interview, ex amination, medical decision making process, and medical care plan development were reviewed and approved by the faculty preceptor. The faculty preceptor is aware and concurs with the plan as stated in the body of this note and will attest to such by his/her cosignature. ALLISON BENAVIDES DO May 24, 2018 14:23
[2018-05-24 18:00] VITALS: BP 119/75
[2018-05-24] MEDS: PRAZOSIN 1 MG CAP PO SCH (20:44)
[2018-05-24] MEDS: SERTRALINE 100 MG TAB PO SCH (20:44)
[2018-05-24] MEDS: IBUPROFEN 600 MG TAB PO PRN (20:45)
[2018-05-24] MEDS: traZODone 50 MG TAB PO PRN (20:45)
[2018-05-25 06:38] VITALS: BP 101/61
[2018-05-25] MEDS: tiZANidine 4 MG TAB PO SCH ×2 (08:17→20:14)
[2018-05-25] MEDS: GABAPENTIN 400 MG CAP PO SCH ×3 (08:17→20:13)
[2018-05-25] MEDS: LIDOCAINE 5% (LIDODERM) PATCH TD PRN (08:18)
[2018-05-25] MEDS: SODIUM CHLORIDE 0.9% NASAL GEL 15GM (AYR) SCH ×2 (08:51→20:14)
[2018-05-25] MEDS: **NOTE PATIENT COMMENT** MISC XX PRN (13:23)
[2018-05-25 18:00] VITALS: BP 120/71
[2018-05-25] MEDS: PRAZOSIN 1 MG CAP PO SCH (20:13)
[2018-05-25] MEDS: SERTRALINE 100 MG TAB PO SCH (20:13)
[2018-05-25] MEDS: IBUPROFEN 600 MG TAB PO PRN (20:15)
[2018-05-26 06:29] VITALS: BP 112/60
[2018-05-26] MEDS: tiZANidine 4 MG TAB PO SCH ×2 (08:45→20:33)
[2018-05-26] MEDS: GABAPENTIN 400 MG CAP PO SCH ×3 (08:45→20:33)
[2018-05-26] MEDS: SODIUM CHLORIDE 0.9% NASAL GEL 15GM (AYR) SCH ×2 (08:46→20:32)
[2018-05-26] MEDS: LIDOCAINE 5% (LIDODERM) PATCH TD PRN (08:46)
[2018-05-26] MEDS: IBUPROFEN 600 MG TAB PO PRN (17:09)
[2018-05-26 18:00] VITALS: BP 108/69
[2018-05-26] MEDS: SERTRALINE 100 MG TAB PO SCH (20:33)
[2018-05-26] MEDS: PRAZOSIN 1 MG CAP PO SCH (20:33)
[2018-05-27 06:51] VITALS: BP 99/52
[2018-05-27] MEDS: GABAPENTIN 400 MG CAP PO SCH ×3 (08:54→20:40)
[2018-05-27] MEDS: SODIUM CHLORIDE 0.9% NASAL GEL 15GM (AYR) SCH ×2 (08:54→20:40)
[2018-05-27] MEDS: tiZANidine 4 MG TAB PO SCH ×2 (08:54→20:40)
[2018-05-27] MEDS ORDERED: diphenhydrAMINE 25 MG CAP PO PRN (13:30)
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
[2018-05-27 18:00] VITALS: BP 110/75
[2018-05-27] MEDS: SERTRALINE 100 MG TAB PO SCH (20:40)
[2018-05-27] MEDS: PRAZOSIN 1 MG CAP PO SCH (20:43)
[2018-05-28 06:36] VITALS: BP 96/55
[2018-05-28] MEDS: SODIUM CHLORIDE 0.9% NASAL GEL 15GM (AYR) SCH ×2 (08:47→20:54)
[2018-05-28] MEDS: GABAPENTIN 400 MG CAP PO SCH ×3 (08:47→20:57)
[2018-05-28] MEDS: tiZANidine 4 MG TAB PO SCH ×2 (08:47→20:58)
--- NOTE | 2018-05-28 12:11 | REP ---
MR LUMBAR SPINE WITHOUT CONTRAST: HISTORY: Back pain. COMPARISON: 04/24/2018 There is no disc bulge or herniation at the L1-2 through L5-S1 levels. The nerves exit the neural foramina without compression. The conus medullaris is normal in appearance terminating at the level of the L1-2 intervertebral disc. Normal signal intensity is present in the lumbar intervertebral discs and vertebral bodies. IMPRESSION: There is no disc bulge or herniation. Electronically Signed by Giuseppe Mandujano MD 05/28/2018 12:11 P
[2018-05-28] MEDS ORDERED: LIDO5TD TD (14:35)
[2018-05-28] MEDS ORDERED: DIPH25CA PO (14:35)
[2018-05-28] MEDS ORDERED: TRAZO50TA PO (14:35)
[2018-05-28] MEDS ORDERED: HYDR-3363 PO (14:35)
[2018-05-28] MEDS ORDERED: SERT-138 PO (14:35)
[2018-05-28] MEDS ORDERED: SODIGEL (14:35)
[2018-05-28] MEDS ORDERED: MINI1CAP PO (14:35)
[2018-05-28] MEDS ORDERED: ARIP5TA PO (14:35)
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
[2018-05-28 18:00] VITALS: BP 107/73
[2018-05-28 20:57] VITALS: BP 121/84
[2018-05-28] MEDS: PRAZOSIN 1 MG CAP PO SCH (20:57)
[2018-05-28] MEDS: SERTRALINE 100 MG TAB PO SCH (20:57)
--- NOTE | 2018-05-28 23:58 | MHIPN ---
DATE: 05/28/2018 I was in the inpatient unit, I was informed that the patient is leaving for long-term care tomorrow, and has had an MRI of the spine done, which shows no bulge in the disc, no herniation either. I was asked by Daria, one of the staff nurses, to inform the patient of this result, which I did, and the patient is aware of it.
[2018-05-29] MEDS: SODIUM CHLORIDE 0.9% NASAL GEL 15GM (AYR) SCH (04:37)
[2018-05-29] MEDS: GABAPENTIN 400 MG CAP PO SCH (04:38)
[2018-05-29] MEDS: tiZANidine 4 MG TAB PO SCH (04:38)
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
== END 2018-05-29 05:15 | DRG 885 ==
LOC: M ED 11:53 → EDBD 11:53 → M ED INP 19:32 → M PSY 05-02 00:05
PROVIDERS: ADMIT Psychiatry & Neurology Psychiatry; ATTEND Psychiatry & Neurology Psychiatry
DX: F32.3 Major depressive disorder, single episode, severe with psychotic features (principal); F43.10 Post-traumatic stress disorder, unspecified; Z62.810 Personal history of physical and sexual abuse in childhood; Z81.1 Family history of alcohol abuse and dependence; Z81.8 Family history of other mental and behavioral disorders; Z91.410 Personal history of adult physical and sexual abuse

== ENCOUNTER 2019-09-18 14:09 | Inpatient (IN) | payer OTHER ==
[~2019-09-18] VITALS: Ht 162.6 cm; Wt 56.2 kg
[~2019-09-18 14:09] MED LIST: ARIP1TAB6 PO; DIPH25CA32 PO; GABA-845 PO; HYDR-3363 PO; LIDO5TD TD; MELO15TA28 PO; MINI1CAP PO; MONI2KIT PV; SERT-138 PO; SODIGEL; TRAZ1TAB10 PO; ZANA4CAP PO
[2019-09-18] MEDS ORDERED: TRAZ-252 PO (14:17)
[2019-09-18] MEDS ORDERED: METH1TAB40 PO (14:17)
[2019-09-18] MEDS ORDERED: PROP80CA PO (14:17)
[2019-09-18] MEDS ORDERED: SUMA50TA2 PO (14:17)
[2019-09-18] MEDS ORDERED: MYRB50TA PO (14:17)
[2019-09-18] MEDS ORDERED: MAGN400T2 PO (14:17)
[2019-09-18 14:51] LABS: MEAN CORPUSCULAR HEMOGLOBIN 26.2 pg (27.0-33.0); MEAN CORPUSCULAR VOLUME 84.5 fl (80.0-96.0); PLATELET COUNT, AUTOMATED 141 10^3/uL (150-450); RED BLOOD COUNT 4.97 10^6/uL (4.00-5.40); WHITE BLOOD COUNT 5.5 10^3/uL (4.0-10.0)
[2019-09-18 15:18] LABS: HCG, SERUM QUALITATIVE NEGATIVE (NEGATIVE)
[2019-09-18 16:02] LABS: ACETAMINOPHEN LEVEL < 2.0 UG/ML (10.0-30.0); ALT/SGPT 23 U/L (12-78); BILIRUBIN,DIRECT 0.2 MG/DL (0.0-0.2); BILIRUBIN,TOTAL 1.1 MG/DL (0.2-1.0); BLOOD UREA NITROGEN 13 MG/DL (7-18); CARBON DIOXIDE LEVEL 27 MEQ/L (21-32); CHLORIDE LEVEL 107 MEQ/L (98-107); CREATININE FOR GFR 0.91 MG/DL (0.55-1.30); ETHYL ALCOHOL (ETHANOL) < 0.003 % (0.000-0.010); GLOMERULAR FILTRATION RATE > 60.0 (>60); GLUCOSE, FASTING 106 MG/DL (70-100); POTASSIUM SERUM 4.1 MEQ/L (3.5-5.1); SALICYLATE LEVEL < 1.7 MG/DL (5.0-30.0); SODIUM LEVEL 144 MEQ/L (136-145)
[2019-09-18] MEDS ORDERED: DULO1CAP6 PO (18:06)
[2019-09-18 18:42] LABS: AMPHETAMINES LEVEL URINE NEGATIVE (NEGATIVE); BARBITURATES URINE NEGATIVE (NEGATIVE); BENZODIAZEPINES URINE NEGATIVE (NEGATIVE); CANNABINOIDS URINE NEGATIVE (NEGATIVE); COCAINE METABOLITE URINE NEGATIVE (NEGATIVE); METHADONE URINE NEGATIVE (NEGATIVE); OPIATES URINE NEGATIVE (NEGATIVE); PHENCYCLIDINE URINE NEGATIVE (NEGATIVE)
[2019-09-18] MEDS ORDERED: traZODone 50 MG TAB PO PRN (19:15)
[2019-09-18] MEDS ORDERED: SUMAtriptan SUCCINATE 25 MG TAB PO PRN (19:15)
[2019-09-18] MEDS ORDERED: MOM 30ML SUSPENSION UDC PO PRN (19:15)
[2019-09-18] MEDS ORDERED: MAALOX 30 ML SUSP *UDC PO PRN (19:15)
[2019-09-18] MEDS: methocarbamoL 500 MG TAB PO SCH (21:00)
[2019-09-19] MEDS: DULoxetine 30 MG CAP (CYMBALTA) PO SCH ×2 (01:13→20:08)
[2019-09-19] MEDS: ACETAMINOPHEN TAB 650MG DOSE (2X325MG) PO PRN ×2 (01:14→04:18)
[2019-09-19 01:52] VITALS: BP 107/72
[2019-09-19 06:23] VITALS: BP 110/68
[2019-09-19] MEDS: MAGNESIUM OXIDE 400 MG TAB (MAG-OX) PO SCH (08:35)
[2019-09-19] MEDS: PROPRANOLOL 80 MG LA CAP PO SCH (08:35)
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
--- NOTE | 2019-09-19 14:17 | HPEPDOC ---
[facility] Medical History & Physical Date of Admission September 18, 2019 Date of Service: September 19, 2019 History and Physical CHIEF COMPLAINT: Medical H&P for [facility] HISTORY OF PRESENT ILLNESS: 34 yo female admitted for suicidal ideation. Currently denies any medical complaints. Denies shortness of breath, abdominal pain, chest pain, N/V/D, headaches, changes in vision. PAST MEDICAL HISTORY: Denies PAST SURGICAL HISTORY: Denies ALLERGIES: Please see below. REVIEW OF SYSTEMS: Negative except as per HPI. HOME MEDICATIONS: Please see below. PHYSICAL EXAMINATION: VITAL SIGNS: See below General: NAD, sitting comfortably in chair LABORATORY DATA: See below. MICROBIOLOGY: Please see below. ASSESSMENT: 34 yo female admitted to [facility] for suicidal ideation, denies any PMHx. #SI - as per primary team - psychiatry Vital Signs Vital Signs Date Time Temp Pulse Resp B/P (MAP) Pulse Ox O2 Delivery O2 Flow Rate FiO2 09/19/19 06:23 99.3 71 12 110/68 (82) 97 09/19/19 01:52 Room Air Laboratory Data Labs 24H Laboratory Tests 2 09/18/19 14:28: Nucleated Red Blood Cells % (auto) 0.0, Anion Gap 10, Glomerular Filtration Rate > 60.0, Calcium Level 9.0, Total Bilirubin 1.1H, Direct Bilirubin 0.2, Aspartate Amino Transf (AST/SGOT) 18, Alanine Aminotransferase (ALT/SGPT) 23, Alkaline Phosphatase 66, Total Protein 8.0, Albumin 4.0, Albumin/Globulin Ratio 1.0L, Thyroid Stimulating Hormone (TSH) 1.940, Human Chorionic Gonadotropin, Qual NEGATIVE, Salicylates Level < 1.7L, Acetaminophen Level < 2.0L, Ethyl Alcohol Level < 0.003 09/18/19 17:31: Urine Opiates Screen NEGATIVE, Urine Methadone Screen NEGATIVE, Urine Barbiturates Screen NEGATIVE, Urine Phencyclidine Screen NEGATIVE, Urine Amphe tamines Screen NEGATIVE, Urine Benzodiazepines Screen NEGATIVE, Urine Cocaine Metabolite Screen NEGATIVE, Urine Cannabinoids Screen NEGATIVE CBC/BMP Laboratory Tests 09/18/19 14:28 Home Medications Scheduled Duloxetine Hcl (Duloxetine HCl) 60 Mg Capsule.dr, 60 MG PO QHS Magnesium Oxide (Magnesium Oxide) 400 Mg Tablet, 400 MG PO DAILY Methocarbamol (Methocarbamol) 500 Mg Tablet, 500 MG PO QHS Mirabegron (Myrbetriq) 50 Mg Tab.er.24h, 50 MG PO DAILY Propranolol HCl (Propranolol HCl ER) 80 Mg Cap.sa.24h, 80 MG PO DAILY Scheduled PRN Sumatriptan Succinate (Sumatriptan Succinate) 50 Mg Tablet, 50 MG PO DAILY PRN for MIGRAINE Trazodone HCl (Trazodone HCl) 50 Mg Tablet, 50 MG PO QHS PRN for SLEEP Allergies Coded Allergies: No Known Allergies (Unverified , 05/01/18) A-FIB/CHADSVASC A-FIB History Current/History of A-Fib/PAF?: No MACKENZIE RESENDEZ MD September 19, 2019 14:17
[2019-09-19 17:06] VITALS: BP 101/66
[2019-09-19] MEDS: methocarbamoL 500 MG TAB PO SCH (20:08)
[2019-09-20 05:57] VITALS: BP 95/52
[2019-09-20] MEDS: MAGNESIUM OXIDE 400 MG TAB (MAG-OX) PO SCH (09:30)
[2019-09-20] MEDS: PROPRANOLOL 80 MG LA CAP PO SCH (09:30)
[2019-09-20 16:13] VITALS: BP_SYST 106; BP_SYST 140; BP_DIAS 67; BP_DIAS 75
[2019-09-20] MEDS: methocarbamoL 500 MG TAB PO SCH (20:35)
[2019-09-20] MEDS: DULoxetine 30 MG CAP (CYMBALTA) PO SCH (20:35)
[2019-09-21 06:21] VITALS: BP 110/66
[2019-09-21] MEDS: PROPRANOLOL 80 MG LA CAP PO SCH (09:52)
[2019-09-21] MEDS: MAGNESIUM OXIDE 400 MG TAB (MAG-OX) PO SCH (09:52)
[2019-09-21 16:40] VITALS: BP 96/54
[2019-09-21] MEDS: methocarbamoL 500 MG TAB PO SCH (21:06)
[2019-09-21] MEDS: DULoxetine 30 MG CAP (CYMBALTA) PO SCH (21:06)
--- NOTE | 2019-09-22 05:15 | MHIPN ---
DATE: 09/20/2019 This is a video appointment, followup, being done because of the virus pandemic. CHIEF COMPLAINT: Feels depressed. SUBJECTIVE: Seen for followup in the presence of staff. Says feels depressed but less so than she had when she first came in and somewhat less anxious. Spoke of harassing her after the separation, in fact after he had gone to [place], which is where he is stationed; he is active duty. Says has taken steps to go ahead with the separation. Sleep is okay, improved. MENTAL STATUS EXAMINATION: Neat, cooperative, but a bit guarded at times. No agitation. Mild psychomotor retardation. She is coherent. Affect is restricted. Vague on suicidal thoughts. No firm plans. No evidence at presence of any psychosis. Cognition grossly intact. Judgment and insight are fair. ASSESSMENT: 1. Posttraumatic stress disorder. 2. Other specified depressive disorder. PLAN: Continue current care, observations. She is on 60 mg of Cymbalta. We spoke of the possibility of increasing that but will hold off on this for now, as felt her symptoms may improve with change in perspective, particularly after separation from . Will continue with current observations. VITAL SIGNS: Blood pressure (BP) 105/67, pulse 79, temperature 97.6.
[2019-09-22 06:10] VITALS: BP 110/68
[2019-09-22] MEDS: MAGNESIUM OXIDE 400 MG TAB (MAG-OX) PO SCH (09:16)
[2019-09-22 09:21] VITALS: BP 98/56
[2019-09-22] MEDS: PROPRANOLOL 80 MG LA CAP PO SCH (09:21)
--- NOTE | 2019-09-22 10:03 | MHDSPDOC ---
[facility] Discharge Summary Discharge Summary DATE OF ADMISSION: September 18, 2019 at 19:15 DATE OF DISCHARGE: Sep 22, 2019 at 13:40 DISCHARGE DIAGNOSES: (1) Major depressive disorder, recurrent (2) PTSD (post-traumatic stress disorder) (3) Family conflict REASON FOR ADMISSION: 34-year-old woman admitted after multiple stressors cause her to feel depressed and anxious CONSULTANTS INVOLVED: none TREATMENT AND PROGRESS ON THE UNIT : patient admitted to the inpatient [facility] unit resumed on her home Cymbalta without any changes, the supportive environment help the patient resolve, she did have some upset experience with her attempting to gain custody of her children while she was hospitalized, she was not allowed to leave. The patient was then seen the next a where she had made good progress and was discharge. She had no suicidal homicidal ideation during her stay in was in behavioral control. DISCHARGE ASSESSMENT: 34-year-old woman with likely MDD /PTSD presents likely the state of adjustment. She does well in the unit, without any major changes. The patient at the time of discharge did not meet criteria for involuntary admission/extension due to having a normal mental status exam, fair insight into the situation, They are engaged in the discharge process, as well as being friendly and amenable in behavioral control and havent been engaging in any observed concerning behavior or ideation recently. They decline voluntary extension/admission at this time and must be discharged in good yariel, as Im unable to make a case for holding the patient against their will. They may have historical risk factors of admissions and other interactions with psychiatry however, those are not modifiable from a clinical perspective. The patient will need to be discharged in good yariel. MENTAL STATUS EXAMINATION ON DISCHARGE: General: Well dressed with good hygiene Speech: Spontaneous and fluid Thought processes: Linear and logical Thought content: Future orientated Abstract reasoning, and computation: Intact Description of associations: Intact Description of abnormal or psychotic thoughts:Denies any suicidal or homicidal ideation. Denies any auditory or visual hallucinations. Does not appear to be responding to internal stimuli. Does not appear to be endorsing any bizarre or paranoid ideation. Judgment: fair Insight: fair Orientation: Alert and orientated 3 Recent and remote memory: Intact Attention span and concentration: Intact Fund of knowledge: Adequate Mood: "okay" Affect: Euthymic with a full range PLAN/FOLLOWUP ARRANGEMENTS: appropriate follow-ups made. The amount of time spent in the coordination of care for this patient was approximately 45 minutes. Vital Signs/I&Os Vital Signs Date Time Temp Pulse Resp B/P (MAP) Pulse Ox O2 Delivery O2 Flow Rate FiO2 09/22/19 09:21 67 98/56 09/22/19 06:10 98.9 16 09/21/19 16:40 100 Room Air Laboratory Data Labs 24H Laboratory Tests 2 09/21/19 12:40: Urine Color STRAW, Urine Appearance CLEAR, Urine pH 7.0, Urine Specific [place] 1.008, Urine Protein NEGATIVE, Urine Glucose (UA) NEGATIVE, Urine Ketones NEGATIVE, Urine Blood NEGATIVE, Urine Nitrite NEGATIVE, Urine Bilirubin NEGATIVE, Urine Urobilinogen 0.2, Urine Leukocyte Esterase 1+H, Urine WBC (Auto) 2, Urine RBC (Auto) 1, Urine Hyaline Casts (Auto) 0, Urine Bacteria (Auto) NEGATIVE, Urine Squamous Epithelial Cells 1, Urine Sperm (Auto) Microbiology Microbiology 09/21/19 Urine Culture, Received Pending Medications Scheduled Duloxetine Hcl (Duloxetine HCl) 60 Mg Capsule.dr, 60 MG PO QHS, (Reported) Magnesium Oxide (Magnesium Oxide) 400 Mg Tablet, 400 MG PO DAILY, (Reported) Methocarbamol (Methocarbamol) 500 Mg Tablet, 500 MG PO QHS, (Reported) Mirabegron (Myrbetriq) 50 Mg Tab.er.24h, 50 MG PO DAILY, (Reported) Propranolol HCl (Propranolol HCl ER) 80 Mg Cap.sa.24h, 80 MG PO DAILY, (Reported) Scheduled PRN Sumatriptan Succinate (Sumatriptan Succinate) 50 Mg Tablet, 50 MG PO DAILY PRN for MIGRAINE, (Reported) Trazodone HCl (Trazodone HCl) 50 Mg Tablet, 50 MG PO QHS PRN for SLEEP, (Reported) Allergies Coded Allergies: No Known Allergies (Unverified , 05/01/18) NÉSTOR JUÁREZ DO Sep 22, 2019 10:03
--- NOTE | 2019-09-23 06:32 | MHIPN ---
DATE: 09/22/2019 This is a video assessment followup. She is seen in the presence of staff. VITAL SIGNS: Blood pressure 96/54. Pulse 69. Temperature 99.3. CHIEF COMPLAINT: Feels anxious. SUBJECTIVE: Seen for followup. Indicates has been feeling anxious and stressed, as the , who is active duty in [place], finally contacted her and has been contacting her since yesterday. She says she is not sure how he found out she was in the hospital. She has tended to get upset and says he told her that he was coming to [place] and to get the children. The children are being looked after by a friend Leah. She informed Leah about her 's plan to come over and get the children, and she has asked Leah to call the police if that were to happen, says Leah is not sure whether she would be able to do that, the patient informed another friend Esperanza to look after the children, and she hesitated and finally they are going to stay with Leah for now. Says later on she got further word from her , she says she has tended to ignore his calls. She had meanwhile contacted the logging supervisor, informed them of the current situation and her worries. She says she has called them in the past regarding her 's harassment. Says apparently her sent a message indicating that he was in [place] and she says she tends to believe him, she contacted the police again, and she says they indicated that they would issue an order of protection against her if he were to come up here. She says if he were to do that, and she is not in the hospital, she said she would not hesitate to call in the police. She says she feels a bit better now, now that Leah has agreed to look after the children. MENTAL STATUS EXAMINATION: Neat, cooperative, no agitation, no psychomotor retardation. Appears somewhat anxious, but is coherent. Denies any thoughts of harming herself or anyone else, currently no evidence of any psychosis as such. Cognition grossly intact. Judgment and insight fair. ASSESSMENT: 1. Post traumatic stress disorder. Has been anxious, particularly in response to apparent calls from and his plans to come over. PLAN: Continue current care, continue working with the patient. She is to continue with Cymbalta at 60 mg daily and propranolol 80 mg daily. She is to be encouraged to participate in activities in the unit as tolerated. She will be seeing the assigned psychiatrist tomorrow, and further recommendations will be made. The assessment took 20 minutes.
[2019-09-23] MEDS ORDERED: AMOX875T2 PO (06:44)
== END 2019-09-22 13:40 | disposition home or self-care (01) | DRG 885 ==
LOC: M ED 14:09 → M ED INP 19:15 → M PSY 23:48
PROVIDERS: ADMIT Psychiatry & Neurology Psychiatry; ATTEND Psychiatry & Neurology Addiction Medicine
DX: F33.9 Major depressive disorder, recurrent, unspecified (principal); F43.10 Post-traumatic stress disorder, unspecified; Z63.0 Problems in relationship with spouse or partner; Z79.899 Other long term (current) drug therapy

== ENCOUNTER → 2021-07-07 | Outpatient (CLI) | payer OTHER ==
[~2021-07-07] MED LIST changes: +AMOX875T2 PO; +DULO1CAP6 PO; +GABA-283 PO; -GABA-845 PO; +ISOVUE-370 76% 100ML VIAL As Ordered ONE; +MAGN400T2 PO; +METH-1164 PO; +MYRB50TA PO; +PROP80CA PO; +SUMA50TA2 PO; +TRAZ-252 PO
== END ==
LOC: M RAD 13:50
PROVIDERS: ATTEND Nurse Practitioner Family
DX: G14 Postpolio syndrome (principal); G89.29 Other chronic pain
CPT/HCPCS: 71260; Q9967

== ENCOUNTER → 2022-07-20 | Outpatient (REF) | payer OTHER ==
[~2022-07-20] MED LIST changes: +DIPH-435 PO; -DIPH25CA32 PO; -ISOVUE-370 76% 100ML VIAL As Ordered ONE
[2022-07-20 17:12] LABS: APPEARANCE, URINE TURBID (CLEAR); BACTERIA, URINE AUTO NEGATIVE (NEGATIVE); BILIRUBIN, URINE AUTO NEGATIVE (NEGATIVE); BLOOD, URINE BLOOD NEGATIVE (NEGATIVE); COLOR, URINE AMBER (YELLOW); GLUCOSE, URINE (UA) AUTO NEGATIVE (NEGATIVE); KETONE, URINE AUTO NEGATIVE (NEGATIVE); LEUKOCYTE ESTERASE, URINE AUTO 2+ (NEGATIVE); MUCUS, URINE SMALL (NEGATIVE); NITRITE, URINE AUTO NEGATIVE (NEGATIVE); PROTEIN, URINE AUTO NEGATIVE (NEGATIVE); RBC, URINE AUTO 0 /HPF (0-3); SPECIFIC GRAVITY URINE AUTO 1.026 (1.002-1.035); SQUAMOUS EPITHELIAL CELL UR AU 2 /HPF (0-6); UROBILINOGEN, URINE AUTO 0.2 mg/dL (0.0-2.0); WBC, URINE AUTO 29 /HPF (0-3)
== END ==
LOC: M LAB REF 16:30
PROVIDERS: ATTEND Nurse Practitioner Family
DX: R30.0 Dysuria (principal)

== ENCOUNTER → 2022-11-23 | Outpatient (REF) | payer OTHER ==
[~2022-11-23] MED LIST changes: -GABA-283 PO; +GABA-284 PO
== END ==
LOC: M PLALAB 12:50
PROVIDERS: ATTEND Advanced Practice Midwife
DX: R87.610 Atypical squamous cells of undetermined significance on cytologic smear of cervix (ASC-US) (principal); R87.810 Cervical high risk human papillomavirus (HPV) DNA test positive

== ENCOUNTER → 2024-02-07 | Outpatient (REF) | payer OTHER | LOC: M PLALAB 14:22 | PROVIDERS: ATTEND Advanced Practice Midwife | DX: Z01.419 Encounter for gynecological examination (general) (routine) without abnormal findings (principal); Z12.4 Encounter for screening for malignant neoplasm of cervix; Z11.51 Encounter for screening for human papillomavirus (HPV) ==